=== PATIENT | male | born 1965 | race Two or more races ===

== ENCOUNTER → 2019-12-28 | Outpatient (CLI) | payer OTHER ==
--- NOTE | 2019-12-28 13:45 | XR ---
EXAMINATION TYPE: XR wrist complete RT DATE OF EXAM: 12/28/2019 COMPARISON: NONE HISTORY: 54-year-old male right wrist pain and swelling TECHNIQUE: 4 views FINDINGS: Mild degenerative change at the base of the thumb. Chronic ununited fracture fragment of th e ulnar styloid process. Generalized soft tissue swelling at the wrist. There is slight widening of t he scapholunate interval measuring up to 2.6 cm on the navicular view. Otherwise, no acute fracture, subluxation, or dislocation is seen. Old healed boxer's fracture deformity distal fifth metacarpal sh aft. IMPRESSION: 1. Generalized soft tissue swelling. 2. Mild widening of the scapholunate interval suggests age indeterminate scapholunate ligament injury /tear. 3. Chronic ununited fracture fragment of the ulnar styloid process. Old healed boxer's fracture defor mity of the fifth metacarpal.
== END | disposition home or self-care (01) ==
LOC: RADXRMAIN 13:18
PROVIDERS: ATTEND Family Medicine
DX: M79.89 Other specified soft tissue disorders (principal); M25.831 Other specified joint disorders, right wrist

== ENCOUNTER → 2022-04-24 | Outpatient (CLI) | payer OTHER ==
--- NOTE | 2022-04-24 10:23 | XR ---
EXAMINATION TYPE: XR chest 2V DATE OF EXAM: 04/24/2022 COMPARISON: NONE HISTORY: Shortness of breath TECHNIQUE: Frontal and lateral views of the chest are obtained. FINDINGS: Scattered senescent parenchymal changes noted. Hyperinflation compatible with COPD. No evidence for infiltrate. No evidence for atelectasis. There is pulmonary venous congestion with cardiomegaly and small right-sided pleural effusion. Probab le right basilar atelectasis. Mediastinal structures are stable and grossly unremarkable. No evidence for hilar prominence. Degenerative changes dorsal spine. IMPRESSION: 1. Correlate for mild congestive failure. Infiltrates of other etiology not excluded.
== END | disposition home or self-care (01) ==
LOC: RADXRMAIN 09:02
PROVIDERS: ATTEND Family Medicine
DX: Z00.00 Encounter for general adult medical examination without abnormal findings (principal)
CPT/HCPCS: 71046

== ENCOUNTER → 2022-05-22 | Outpatient (CLI) | payer OTHER ==
--- NOTE | 2022-05-22 14:53 | NM ---
EXAMINATION TYPE: NM bone scan whole body DATE OF EXAM: 05/22/2022 COMPARISON: NONE HISTORY: M79.10 MYALGIA, UNSPECIFIED SITE Delayed whole-body scanning was performed following the injection of 21.3 mCi Tc 99m MDP. Images acq uired 3 hours post injection. FINDINGS: There is a mild degenerative uptake seen about the shoulders, sternoclavicular joints, lower lumbar s pine, right knee. No intense uptake is seen to suggest fracture or osseous lesion. IMPRESSION: Mild degenerative uptake noted.
== END | disposition home or self-care (01) ==
LOC: RADNMMAIN 10:10
PROVIDERS: ATTEND Family Medicine
DX: M79.10 Myalgia, unspecified site (principal)
CPT/HCPCS: 78306; A9503

== ENCOUNTER 2023-01-23 08:04 | Inpatient (IN) | payer OTHER ==
[2023-01-23] MEDS ORDERED: IPRATROPIUM-ALBUTEROL 3 ML NEB INHALATION STA (08:21)
--- NOTE | 2023-01-23 08:24 | ED ---
General Adult HPI - General Chief complaint: Shortness of Breath Stated complaint: Dyspnea Time Seen by Provider: 01/23/23 08:14 Source: patient, family, RN notes reviewed Mode of arrival: wheelchair Limitations: physical limitation - History of Present Illness Initial comments: Patient is a pleasant 58-year-old male presenting to the emergency department with difficulty in breathing. Patient has known stage IV lung cancer, recently completed a round of treatment within the past week. Patient previously has had care at [facility] however is trying to transfer more locally. Patient was in the hospital with pneumonia last week. Patient mostly has dyspnea. Patient does have some leg swelling however has been relatively inactive recently. Erin ent does have some diffuse leg pain. No chest pain. No fevers. Mild cough. Patient is on home oxygen 4 L - Related Data Allergies Allergy/AdvReac Type Severity Reaction Status Date / Time No Known Allergies Allergy Verified 01/23/23 08:13 Review of Systems ROS Statement: Those systems with pertinent positive or pertinent negative responses have been documented in the HPI. ROS Other: All systems not noted in ROS Statement are negative. Constitutional: Denies: fever Eyes: Denies: eye pain ENT: Denies: ear pain Respiratory: Reports: as per HPI, dyspnea Cardiovascular: Reports: edema. Denies: chest pain Endocrine: Reports: fatigue Gastrointestinal: Denies: abdominal pain Genitourinary: Denies: dysuria Musculoskeletal: Denies: back pain Skin: Denies: rash Neurological: Denies: weakness Past Medical History Past Medical History: Cancer, Myocardial Infarction ([place]) Additional Past Medical History / Comment(s): lung cancer stage 4, home 02 at 4l History of Any Multi-Drug Resistant Organisms: None Reported Past Surgical History: Pacemaker Past Psychological History: No Psychological Hx Reported Smoking Status: Former smoker Past Alcohol Use History: None Reported Past Drug Use History: None Reported General Exam Limitations: no limitations General appearance: alert Head exam: Present: normocephalic Eye exam: Present: normal appearance Respiratory exam: Present: respiratory distress, decreased breath sounds Cardiovascular Exam: Present: regular rate, normal rhythm GI/Abdominal exam: Present: soft. Absent: tenderness Extremities exam: Present: pedal edema, calf tenderness Neurological exam: Present: alert Psychiatric exam: Present: normal affect, normal mood Skin exam: Present: normal color Course Vital Signs 01/23/23 01/23/23 01/23/23 08:08 08:28 08:37 Temperature 98.6 F Pulse Rate 100 107 H 107 H Respiratory 28 H 20 18 Rate Blood Pressure 105/50 O2 Sat by Pulse 90 L Oximetry 01/23/23 01/23/23 01/23/23 09:06 09:26 10:00 Temperature Pulse Rate 100 99 Respiratory 22 18 18 Rate Blood Pressure 123/90 119/81 O2 Sat by Pulse 92 L 90 L Oximetry EKG Findings - EKG Results: EKG: interpreted by ERMD (Paced rhythm with a rate of 100. [place] indeterminate. Wide QRS complex. Nonspecific ST-T) Medical Decision Making - Medical Decision Making Was pt. sent in by a medical professional or institution (, PA, TAIL END RIDER, urgent care, hospital, or skilled nursing...) When possible be specific @ -No Did you speak to anyone other than the patient for history (EMS, parent, family, police, friend...)? What history was obtained from this source @ -Son is present and helps provide history including oncology history and previous admission Did you review nursing and triage notes (agree or disagree)? Why? @ -I reviewed and agree with nursing and triage notes Were old charts reviewed (outside hosp., previous admission, EMS record, old EKG, old radiological studies, urgent care reports/EKG's, skilled nursing records)? Report findings @ -No old charts were reviewed Differential Diagnosis (chest pain, altered mental status, abdominal pain women, abdominal pain men, vaginal bleeding, weakness, fever, dyspnea, syncope, headache, dizziness, GI bleed, back pain, seizure, CVA, palpatations, mental health)? @ -Differential Dyspnea: Coronary syndrome, arrhythmia, tamponade, asthma, COPD, pulmonary embolism, pneumonia, pneumothorax, pulmonary effusion, anaphylaxis, diabetic ketoacidosis, flailed chest, pulmonary contusion, diaphragmatic rupture, anemia, neuromuscular, this is not meant to be an all-inclusive list. EKG interpreted by me (3pts min.). @ -As above X-rays interpreted by me (1pt min.). @ -Chest x-ray does show evidence of lung edema. Cardiomegaly. Effusions are present. Small. CT interpreted by me (1pt min.). @ -None done U/S interpreted by me (1pt. min.). @ -None done What testing was considered but not performed or refused? (CT, X-rays, U/S, labs)? Why? @ -None What meds were considered but not given or refused? Why? @ -None Did you discuss the management of the patient with other professionals ( professionals i.e. , PA, TAIL END RIDER, lab, RT, psych nurse, social insurance analyst, investigation officer, teacher, horticultural technical officer, catalytic case operator)? Give summary @ -Case was discussed with Dr. Cleary, who will admit covering Dr. Valles Was smoking cessation discussed for >3mins.? @ -No Was critical care preformed (if so, how long)? @ -32 minutes critical care time Were there social determinants of health that impacted care today? How? (Homelessness, low income, unemployed, alcoholism, drug addiction, transport ation, low edu. Level, literacy, decrease access to med. care, correction, rehab)? @ -No Was there de-escalation of care discussed even if they declined (Discuss DNR or withdrawal of care, Hospice)? DNR status @ -No What co-morbidities impacted this encounter? (DM, HTN, Smoking, COPD, CAD, Cancer, CVA, ARF, Chemo, Hep., AIDS, mental health diagnosis, sleep apnea, morbid obesity)? @ -Patient does have history of recent pneumonia and lung cancer Was patient admitted / discharged? Hospital course, mention meds given and route, prescriptions, significant lab abnormalities, going to OR and other pertinent info. @ -Patient reevaluated and somewhat improved. Patient and family are updated regarding results and plan. Patient will be admitted for diuresis. Patient cassie l also need consults with cardiology and oncology Undiagnosed new problem with uncertain prognosis? @ -No Drug Therapy requiring intensive monitoring for toxicity (Heparin, Nitro, Insulin, Cardizem)? @ -Patient will receive a dose of IV potassium Were any procedures done? @ -No Diagnosis/symptom? @ -Pulmonary edema, hypokalemia, lung cancer Acute, or Chronic, or Acute on Chronic? @ -Acute, acute, chronic Uncomplicated (without systemic symptoms) or Complicated (systemic symptoms)? @ -default Side effects of treatment? @ -No Exacerbation, Progression, or Severe Exacerbation? @ -No Poses a threat to life or bodily function? How? (Chest pain, [place], [place], pneumonia, PE, COPD, DKA, ARF, appy, cholecystitis, CVA, Diverticulitis, Homicidal, Suicidal, threat to staff... and all critical care pts) @ -No - Lab Data Result diagrams: 01/23/23 09:22 01/23/23 09:22 Lab Results 01/23/23 01/23/23 01/23/23 Range/Units 09:22 09:22 09:22 WBC 12.6 H (3.8-10.6) k/uL RBC 3.58 L (4.30-5.90) m/uL Hgb 10.5 L (13.0-17.5) gm/dL Hct 35.1 L (39.0-53.0) % MCV 98.0 (80.0-100.0) fL MCH 29.2 (25.0-35.0) pg MCHC 29.8 L (31.0-37.0) g/dL RDW 20.3 H (11.5-15.5) % Plt Count 152 (150-450) k/uL MPV 9.2 Neutrophils % 93 % Lymphocytes % 2 % Monocytes % 3 % Eosinophils % 0 % Basophils % 0 % Neutrophils # 11.7 H (1.3-7.7) k/uL Lymphocytes # 0.3 L (1.0-4.8) k/uL Monocytes # 0.4 (0-1.0) k/uL Eosinophils # 0.0 (0-0.7) k/uL Basophils # 0.0 (0-0.2) k/uL Hypochromasia Marked Poikilocytosis Slight Anisocytosis Moderate Macrocytosis Moderate PT 12.6 H (9.0-12.0) sec INR 1.2 H (<1.2) APTT 25.4 (22.0-30.0) sec Sodium 136 L (137-145) mmol/L Potassium 2.8 L (3.5-5.1) mmol/L Chloride 89 L (98-107) mmol/L Carbon Dioxide 36 H (22-30) mmol/L Anion Gap 11 mmol/L BUN 31 H (9-20) mg/dL Creatinine 0.75 (0.66-1.25) mg/dL Est GFR (CKD-EPI)AfAm >90 (>60 ml/min/1.73 sqM) Est GFR (CKD-EPI)NonAf >90 (>60 ml/min/1.73 sqM) Glucose 97 (74-99) mg/dL Plasma Lactic Acid Buck (0.7-2.0) mmol/L Calcium 8.2 L (8.4-10.2) mg/dL Magnesium 1.8 (1.6-2.3) mg/dL Total Bilirubin 1.7 H (0.2-1.3) mg/dL AST 46 (17-59) U/L ALT 53 H (4-49) U/L Alkaline Phosphatase 508 H (38-126) U/L Troponin I (0.000-0.034) ng/mL NT-Pro-B Natriuret Pep pg/mL Total Protein 6.1 L (6.3-8.2) g/dL Albumin 3.3 L (3.5-5.0) g/dL Coronavirus (PCR) (Not Detectd) 01/23/23 01/23/23 01/23/23 Range/Units 09:22 09:22 09:22 WBC (3.8-10.6) k/uL RBC (4.30-5.90) m/uL Hgb (13.0-17.5) gm/dL Hct (39.0-53.0) % MCV (80.0-100.0) fL MCH (25.0-35.0) pg MCHC (31.0-37.0) g/dL RDW (11.5-15.5) % Plt Count (150-450) k/uL MPV Neutrophils % % Lymphocytes % % Monocytes % % Eosinophils % % Basophils % % Neutrophils # (1.3-7.7) k/uL Lymphocytes # (1.0-4.8) k/uL Monocytes # (0-1.0) k/uL Eosinophils # (0-0.7) k/uL Basophils # (0-0.2) k/uL Hypochromasia Poikilocytosis Anisocytosis Macrocytosis PT (9.0-12.0) sec INR (<1.2) APTT (22.0-30.0) sec Sodium (137-145) mmol/L Potassium (3.5-5.1) mmol/L Chloride (98-107) mmol/L Carbon Dioxide (22-30) mmol/L Anion Gap mmol/L BUN (9-20) mg/dL Creatinine (0.66-1.25) mg/dL Est GFR (CKD-EPI)AfAm (>60 ml/min/1.73 sqM) Est GFR (CKD-EPI)NonAf (>60 ml/min/1.73 sqM) Glucose (74-99) mg/dL Plasma Lactic Acid Buck 1.6 (0.7-2.0) mmol/L Calcium (8.4-10.2) mg/dL Magnesium (1.6-2.3) mg/dL Total Bilirubin (0.2-1.3) mg/dL AST (17-59) U/L ALT (4-49) U/L Alkaline Phosphatase (38-126) U/L Troponin I 0.053 H* (0.000-0.034) ng/mL NT-Pro-B Natriuret Pep 41299 pg/mL Total Protein (6.3-8.2) g/dL Albumin (3.5-5.0) g/dL Coronavirus (PCR) (Not Detectd) 01/23/23 Range/Units 09:22 WBC (3.8-10.6) k/uL RBC (4.30-5.90) m/uL Hgb (13.0-17.5) gm/dL Hct (39.0-53.0) % MCV (80.0-100.0) fL MCH (25.0-35.0) pg MCHC (31.0-37.0) g/dL RDW (11.5-15.5) % Plt Count (150-450) k/uL MPV Neutrophils % % Lymphocytes % % Monocytes % % Eosinophils % % Basophils % % Neutrophils # (1.3-7.7) k/uL Lymphocytes # (1.0-4.8) k/uL Monocytes # (0-1.0) k/uL Eosinophils # (0-0.7) k/uL Basophils # (0-0.2) k/uL Hypochromasia Poikilocytosis Anisocytosis Macrocytosis PT (9.0-12.0) sec INR (<1.2) APTT (22.0-30.0) sec Sodium (137-145) mmol/L Potassium (3.5-5.1) mmol/L Chloride (98-107) mmol/L Carbon Dioxide (22-30) mmol/L Anion Gap mmol/L BUN (9-20) mg/dL Creatinine (0.66-1.25) mg/dL Est GFR (CKD-EPI)AfAm (>60 ml/min/1.73 sqM) Est GFR (CKD-EPI)NonAf (>60 ml/min/1.73 sqM) Glucose (74-99) mg/dL Plasma Lactic Acid Buck (0.7-2.0) mmol/L Calcium (8.4-10.2) mg/dL Magnesium (1.6-2.3) mg/dL Total Bilirubin (0.2-1.3) mg/dL AST (17-59) U/L ALT (4-49) U/L Alkaline Phosphatase (38-126) U/L Troponin I (0.000-0.034) ng/mL NT-Pro-B Natriuret Pep pg/mL Total Protein (6.3-8.2) g/dL Albumin (3.5-5.0) g/dL Coronavirus (PCR) Not Detected (Not Detectd) Critical Care Time Critical Care Time: Yes Total Critical Care Time: 32 Disposition Clinical Impression: Acute pulmonary edema, Lung cancer, Hypokalemia Disposition: ADMITTED IP TO THIS [facility] Condition: Serious Is patient prescribed a controlled substance at d/c from ED?: No Referrals: Samson Stark DO [Primary Care Provider] - 1-2 days Time of Disposition: 10:43
[2023-01-23] MEDS ORDERED: MORPHINE SULFATE 4 MG/ML SYRINGE IVP STA (08:51)
--- NOTE | 2023-01-23 09:32 | XR ---
EXAMINATION TYPE: XR chest 1V portable DATE OF EXAM: 01/23/2023 COMPARISON: 04/24/2022 INDICATION: Dyspnea TECHNIQUE: Single frontal view of the chest is obtained. FINDINGS: The heart size is enlarged. The pulmonary vasculature is normal. Diffuse increased lung markings are present bilaterally. Minimal bilateral pleural effusions are pres ent. Port is present on the right with the tip in the superior vena cava region. Electronic device overlie s left chest. IMPRESSION: 1. Cardiomegaly with bibasilar infiltrates. Small effusions are present. Clinical correlation recomme nded for congestive heart failure.
[2023-01-23 09:37] LABS: Anisocytosis Moderate; Basophils % (A) 0 %; Eosinophils % (A) 0 %; HCT 35.1 % (39.0-53.0); HGB 10.5 gm/dL (13.0-17.5); Hypochromasia Marked; Lymphocytes # (A) 0.3 k/uL (1.0-4.8); Lymphocytes % (A) 2 %; MCH 29.2 pg (25.0-35.0); MCHC 29.8 g/dL (31.0-37.0); Macrocytosis Moderate; Mean Platelet Volume 9.2; Monocytes # (A) 0.4 k/uL (0-1.0); Monocytes % (A) 3 %; Neutrophils # (A) 11.7 k/uL (1.3-7.7); Neutrophils % (A) 93 %; Platelet Count 152 k/uL (150-450); Poikilocytosis Slight; RBC 3.58 m/uL (4.30-5.90); RDW 20.3 % (11.5-15.5); WBC 12.6 k/uL (3.8-10.6)
[2023-01-23 09:52] LABS: INR 1.2 (<1.2); Partial Thromboplastin Time 25.4 sec (22.0-30.0); Prothrombin Time 12.6 sec (9.0-12.0)
[2023-01-23 09:53] LABS: ALT 53 U/L (4-49); AST 46 U/L (17-59); African American GFR (CKD) >90 (>60 ml/min/1.73 sqM); Albumin 3.3 g/dL (3.5-5.0); Alkaline Phosphatase 508 U/L (38-126); Blood Urea Nitrogen 31 mg/dL (9-20); Calcium 8.2 mg/dL (8.4-10.2); Chloride 89 mmol/L (98-107); Glucose 97 mg/dL (74-99); Magnesium 1.8 mg/dL (1.6-2.3); Non-African American GFR(CKD) >90 (>60 ml/min/1.73 sqM); Potassium 2.8 mmol/L (3.5-5.1); Sodium 136 mmol/L (137-145); Total Bilirubin 1.7 mg/dL (0.2-1.3); Total Protein 6.1 g/dL (6.3-8.2)
[2023-01-23 09:59] LABS: Anion Gap 11 mmol/L; Carbon Dioxide 36 mmol/L (22-30)
[2023-01-23] MEDS ORDERED: POTASSIUM CHLORIDE ER 20 MEQ TAB.ER PO STA (10:04)
[2023-01-23] MEDS ORDERED: POTASSIUM CHLORIDE 10 MEQ in WATER FOR INJECTION 1 100ML.BAG IVPB STA (10:42)
--- NOTE | 2023-01-23 10:54 | US ---
EXAMINATION TYPE: US venous doppler duplex LE BI DATE OF EXAM: 01/23/2023 10:32 AM COMPARISON: NONE CLINICAL INDICATION: Male, 58 years old with history of swelling; Edema SIDE PERFORMED: Bilateral TECHNIQUE: The lower extremity deep venous system is examined utilizing real time linear array sonog gen with graded compression, doppler sonography and color-flow sonography. VESSELS IMAGED: Common Femoral Vein Deep Femoral Vein Greater Saphenous Vein * Femoral Vein Popliteal Vein Small Saphenous Vein * Proximal Calf Veins (* superficial vessels) Right Leg: No evidence of DVT as visualized. Limitations due to large amount of soft tissue edema Left Leg: No evidence of DVT as visualized. Limitations due to large amount of soft tissue edema IMPRESSION: 1. Bilateral lower extremity ultrasound negative for deep venous thrombosis.
[2023-01-23] MEDS: FUROSEMIDE 10 MG/ML 4 ML VIAL IV SCH ×2 (11:27→18:27)
[2023-01-23] MEDS: SPIRONOLACTONE 25 MG TAB PO SCH (13:26)
[2023-01-23] MEDS: METOPROLOL TARTRATE 12.5 MG TAB PO SCH ×3 (13:26→21:13)
--- NOTE | 2023-01-23 14:54 | P.CRDCN ---
History of Present Illness Consult date: 01/23/23 Consult reason: shortness of breath History of present illness: The patient is a 58-year-old male who presented to the hospital with increased shortness of breath and lower extremity edema. He states he's been struggling with edema over the last several months while undergoing chemotherapy for stage IV lung cancer and was recently treated for pneumonia. He states several of his chemotherapy treatments have had to be canceled due to the edema. The patient states he does follow with a Dr. Pacheco at [facility]. DIAGNOSTICS: EKG shows paced rhythm Telemetry shows paced rhythm with alternating bundle branch block, likely underlying atrial fibrillation Chest x-ray shows cardiomegaly with bibasilar infiltrates and small effusions Venous Doppler negative for DVT Vitals: Blood pressure 104/90, pulse 101, respiratory rate 22, SpO2 94% on 4 L nasal cannula, afebrile Lab data: WBC 12.6, hemoglobin 10.5, hematocrit 35.1, platelet 152, sodium 136, potassium 2.8, BUN 31, creatinine 0.75, magnesium 1.8, AST 46, ALT 53, ALP 508, troponin 0.05, 0.05, 0.05, BNP 13,100 PAST MEDICAL HISTORY: Cardiomyopathy, status post biventricular ICD, stage IV lung cancer, coronary artery disease REVIEW OF SYSTEMS: No fever or chills. No cough or expectoration. No diaphoresis. Patient denies headache, dizziness, blurred vision, double vision. Patient denies any stomach discomfort. No nausea, vomiting. No hematochezia. No hematemesis. Denies any black stools or blood in his stools. Denies dysuria or hematuria. No muscle weakness or numbness. Positive for shortness of breath. Negative for chest discomfort PHYSICAL EXAMINATION: This is a 58-year-old male in no apparent distress at the time of my examination. HEENT: Head is atraumatic, normocephalic. Pupils are equal, round. Sclerae anicteric. Conjunctivae are clear. Mucous membranes of the mouth are moist. Neck is supple. There is no jugular venous distention. No carotid bruit is heard. CHEST EXAMINATION: Lungs are clear diminished auscultation. No chest wall tenderness is noted on palpation or with deep breathing. HEART EXAMINATION: Irregular rate and rhythm. S1, S2 heard. No murmurs, gallops or rub. ABDOMEN: Soft, nontender. Bowel sounds are heard. No organomegaly noted. EXTREMITIES: 2+ peripheral pulses. +2-3 bilateral pitting peripheral edema and no calf tenderness noted. NEUROLOGIC EXAMINATION: Patient is awake, alert and oriented x3. FINAL ASSESSMENT AND PLAN: Congestive heart failure, likely systolic Elevated troponins, flat trend Hypokalemia Anemia History of stage IV lung cancer, currently undergoing chemotherapy PLAN: Confirm and resume home medications Start metoprolol 12-1/2 mg 3 times per day Start spironolactone 25 mg Device interrogation Strict I's and O's Electrolyte supplementation per protocol Echocardiogram and Doppler study Further recommendations to be based upon clinical course I am dictating on behalf of Dr Tej Fitzpatrick's history/physical and assessment/plan. Past Medical History Past Medical History: Cancer, Myocardial Infarction ([place]) Additional Past Medical History / Comment(s): lung cancer stage 4, home 02 at 4l History of Any Multi-Drug Resistant Organisms: None Reported Past Surgical History: Pacemaker Past Psychological History: No Psychological Hx Reported Smoking Status: Former smoker Past Alcohol Use History: None Reported Past Drug Use History: None Reported Medications and Allergies Home Medications Medication Instructions Recorded Confirmed Type ALPRAZolam [Xanax] 1 mg PO BID PRN 01/23/23 01/23/23 History Albuterol Inhaler [Ventolin Hfa 1 - 2 puff INHALATION RT-Q6H PRN 01/23/23 01/23/23 History Inhaler] Aspirin EC [Ecotrin Low Dose] 81 mg PO DAILY 01/23/23 01/23/23 History Atorvastatin Calcium [Lipitor] 40 mg PO HS 01/23/23 01/23/23 History Ferrous Sulfate [Feosol] 325 mg PO DAILY 01/23/23 01/23/23 History Folic Acid 1 mg PO DAILY 01/23/23 01/23/23 History Furosemide [Lasix] 40 mg PO DAILY 01/23/23 01/23/23 History Ibuprofen [Motrin] 800 mg PO Q8H PRN 01/23/23 01/23/23 History Levothyroxine Sodium 200 mcg PO DAILY 01/23/23 01/23/23 History Lidocaine-Prilocaine Cream [Emla 1 applic TOPICAL DAILY PRN 01/23/23 01/23/23 History Cream 2.5%/2.5%] Magnesium Oxide [Mag-Ox] 400 mg PO DAILY 01/23/23 01/23/23 History Melatonin 10 mg PO HS 01/23/23 01/23/23 History Metoprolol Succinate [Metoprolol 25 mg PO DAILY 01/23/23 01/23/23 History Succinate ER] OLANZapine [ZyPREXA] 5 mg PO HS PRN 01/23/23 01/23/23 History Omeprazole 20 mg PO DAILY 01/23/23 01/23/23 History Ondansetron Odt [Zofran Odt] 8 mg PO Q8HR PRN 01/23/23 01/23/23 History Potassium Chloride ER [K-Dur 20] 20 meq PO DAILY 01/23/23 01/23/23 History Tiotropium 2.5 Mcg/Puff [Spiriva 1 puff INHALATION RT-BID 01/23/23 01/23/23 History Respimat 2.5 Mcg] Allergies Allergy/AdvReac Type Severity Reaction Status Date / Time No Known Allergies Allergy Verified 01/23/23 13:04 Physical Exam Vitals: Vital Signs Temp Pulse Resp BP Pulse Ox 01/23/23 14:01 101 H 22 104/90 94 L 01/23/23 13:00 93 L 01/23/23 12:59 97.6 F 100 22 111/91 88 L 01/23/23 10:00 99 18 119/81 90 L 01/23/23 09:26 100 18 123/90 92 L 01/23/23 09:06 22 01/23/23 08:37 107 H 18 01/23/23 08:28 107 H 20 01/23/23 08:08 98.6 F 100 28 H 105/50 90 L Intake and Output 01/22/23 01/23/23 01/23/23 22:59 06:59 14:59 Other: Weight 77.564 kg Results 01/23/23 09:22 01/23/23 09:22 Cardiac Enzymes 01/23/23 01/23/23 01/23/23 Range/Units 09:22 09:22 11:10 AST 46 (17-59) U/L Troponin I 0.053 H* 0.055 H* (0.000-0.034) ng/mL 01/23/23 Range/Units 13:07 AST (17-59) U/L Troponin I 0.059 H* (0.000-0.034) ng/mL Coagulation 01/23/23 Range/Units 09:22 PT 12.6 H (9.0-12.0) sec APTT 25.4 (22.0-30.0) sec CBC 01/23/23 Range/Units 09:22 WBC 12.6 H (3.8-10.6) k/uL RBC 3.58 L (4.30-5.90) m/uL Hgb 10.5 L (13.0-17.5) gm/dL Hct 35.1 L (39.0-53.0) % Plt Count 152 (150-450) k/uL Comprehensive Metabolic Panel 01/23/23 Range/Units 09:22 Sodium 136 L (137-145) mmol/L Potassium 2.8 L (3.5-5.1) mmol/L Chloride 89 L (98-107) mmol/L Carbon Dioxide 36 H (22-30) mmol/L BUN 31 H (9-20) mg/dL Creatinine 0.75 (0.66-1.25) mg/dL Glucose 97 (74-99) mg/dL Calcium 8.2 L (8.4-10.2) mg/dL AST 46 (17-59) U/L ALT 53 H (4-49) U/L Alkaline Phosphatase 508 H (38-126) U/L Total Protein 6.1 L (6.3-8.2) g/dL Albumin 3.3 L (3.5-5.0) g/dL Current Medications Generic Name Dose Route Start Last Admin Trade Name Freq PRN Reason Stop Dose Admin Furosemide 40 mg 01/23/23 11:00 01/23/23 11:27 Furosemide 10 Mg/Ml 4 Ml Vial IV 40 mg Q8H BRITTNEE Administration Metoprolol Tartrate 12.5 mg 01/23/23 13:00 01/23/23 13:26 Metoprolol Tartrate 12.5 Mg Tab PO 12.5 mg TID BRITTNEE Administration Spironolactone 25 mg 01/23/23 13:00 01/23/23 13:26 Spironolactone 25 Mg Tab PO 25 mg DAILY BRITTNEE Administration Intake and Output 01/22/23 01/23/23 01/23/23 22:59 06:59 14:59 Other: Weight 77.564 kg Patient Weight 01/24/23 06:59 Weight 77.564 kg 01/23/23 09:22 01/23/23 09:22
--- NOTE | 2023-01-23 17:55 | CA ---
Transthoracic Echo Report Name: Charli Rod Age: 58 Gender: M : 1965 Exam Date: 01/23/2023 13:10 Exam Location: [facility] Ht (in): 68 Wt (lb): 171 Ordering Physician: Cordelia Leon Attending/Referring Phys: [id number], Edward [employer]ights Specialist Yina Mckeon, RANDELL Procedure CPT: Indications: chf, cardiomyopathy Cardiac Hx: Technical Quality: Fair Contrast 1: Total Dose (mL): Contrast 2: Total Dose (mL): MEASUREMENTS (Male / Female) Normal Values 2D ECHO LV Diastolic Diameter PLAX 5.3 cm 4.2 - 5.9 / 3.9 - 5.3 cm LV Systolic Diameter PLAX 4.8 cm IVS Diastolic Thickness 1.7 cm 0.6 - 1.0 / 0.6 - 0.9 cm LVPW Diastolic Thickness 1.2 cm 0.6 - 1.0 / 0.6 - 0.9 cm LV Relative Wall Thickness 0.5 RV Internal Dim ED PLAX 3.6 cm LA Volume 83.8 cm??? 18 - 58 / 22 - 52 cm??? M-MODE Aortic Root Diameter MM 3.0 cm LA Systolic Diameter MM 4.3 cm LA Ao Ratio MM 1.5 AV Cusp Separation MM 1.6 cm DOPPLER AV Peak Velocity 189.6 cm/s AV Peak Gradient 14.4 mmHg AV Mean Velocity 131.2 cm/s AV Mean Gradient 8.3 mmHg AV Velocity Time Integral 23.5 cm LVOT Peak Velocity 147.2 cm/s LVOT Peak Gradient 8.7 mmHg MV Peak Velocity 197.5 cm/s MV Peak Gradient 15.6 mmHg MV Mean Velocity 115.1 cm/s MV Mean Gradient 6.4 mmHg MV Velocity Time Integral 30.2 cm MV Area PHT 3.0 cm??? Mitral E Point Velocity 217.5 cm/s Mitral A Point Velocity 1.7 cm/s Mitral E to A Ratio 125.0 MV Deceleration Time 253.2 ms TR Peak Velocity 392.5 cm/s TR Peak Gradient 61.6 mmHg Right Ventricular Systolic Press 63.5 mmHg FINDINGS Left Ventricle Moderately increased left ventricular wall thickness. Severely reduced global left ventricular systolic function. Left ventricular ejection fraction is estimated at 20 %. S/P CABG. Right Ventricle Mild right ventricular dilatation. Severe pulmonary hypertension. Right Atrium Mild right atrial dilatation. Left Atrium Severely increased left atrial volume. Mildly increased left atrial area. Mitral Valve Moderate mitral annular calcification. S/P Mitral valve repair. Aortic Valve No aortic valve stenosis or regurgitation. Aortic valve sclerosis. Tricuspid Valve Structurally normal tricuspid valve. [id number] tricuspid regurgitation. Pulmonic Valve Structurally normal pulmonic valve. Trace to mild pulmonic regurgitation. Pericardium No pericardial effusion. Aorta Normal size aortic root and proximal ascending aorta. CONCLUSIONS Dilated left ventricle with severe LV dysfunction Physical mitral leaflets with reduced excursion 3+ tricuspid regurgitation RV enlargement with severe pulmonary hypertension Previewed by: Dr. Tej Fitzpatrick MD (Electronically Signed) Final Date: 23 Jan 2023 17:54
[2023-01-24] MEDS: MORPHINE SULFATE 4 MG/ML SYRINGE IVP PRN ×3 (02:38→20:38)
[2023-01-24] MEDS: FUROSEMIDE 10 MG/ML 4 ML VIAL IV SCH ×3 (04:41→21:50)
[2023-01-24 05:55] LABS: African American GFR (CKD) >90 (>60 ml/min/1.73 sqM); Anion Gap 12 mmol/L; Blood Urea Nitrogen 35 mg/dL (9-20); Calcium 8.3 mg/dL (8.4-10.2); Carbon Dioxide 35 mmol/L (22-30); Chloride 87 mmol/L (98-107); Glucose 95 mg/dL (74-99); Non-African American GFR(CKD) 90 (>60 ml/min/1.73 sqM); Potassium 3.6 mmol/L (3.5-5.1); Sodium 134 mmol/L (137-145)
[2023-01-24] MEDS ORDERED: ONDANSETRON ODT 8 MG TAB.RAPDIS PO PRN (08:30)
[2023-01-24] MEDS ORDERED: OLANZapine 5 MG TAB PO PRN (08:30)
[2023-01-24] MEDS ORDERED: ACETAMINOPHEN TAB 325 MG TAB PO PRN (08:31)
[2023-01-24] MEDS: SPIRONOLACTONE 25 MG TAB PO SCH (09:09)
[2023-01-24] MEDS: PANTOPRAZOLE 40 MG TABLET PO SCH (09:09)
[2023-01-24] MEDS: MAGNESIUM OXIDE 400 MG TAB PO SCH (09:09)
[2023-01-24] MEDS: ASPIRIN 81 MG PO SCH (09:09)
[2023-01-24] MEDS: POTASSIUM CHLORIDE ER 20 MEQ TAB.ER PO SCH (09:10)
[2023-01-24] MEDS: FERROUS SULFATE 325 MG TAB PO SCH (09:10)
[2023-01-24] MEDS: METOPROLOL TARTRATE 12.5 MG TAB PO SCH ×3 (09:10→20:37)
[2023-01-24] MEDS: FOLIC ACID 1 MG TAB PO SCH (09:10)
[2023-01-24] MEDS: LEVOTHYROXINE 100 MCG TAB PO SCH (09:12)
--- NOTE | 2023-01-24 13:15 | P.PN ---
Subjective Progress Note Date: 01/24/23 The patient is a 58-year-old male who presented to the hospital with increased shortness of breath and lower extremity edema. Cardiology was consulted for CHF exacerbation. Recent echocardiogram shows reduction in LV function to 20% with severe global hypokinesis, increased left atrial volume, 3+ tricuspid regurgitation, RV enlargement with severe pulmonary hypertension. RVSP 63 mmHg. Device interrogation also reveals new onset of atrial fibrillation in the month of December. This corresponds with his increase in edema and worsening shortness of breath. Optive readings indicate fluid overload. The patient was interviewed and examined resting comfortably in bed. He states his breathing has not improved, however he does feel that his lower extremity edema is improving. No chest pain or chest pressure. No dizziness. GENERAL: Ill-appearing, well-nourished and in no acute distress. NECK: Supple without JVD or thyromegaly. LUNGS: Breath sounds diminished to auscultation bilaterally. Respiration equal and unlabored. Fine crackles noted in the right lower lobe. HEART: Irregular rate and rhythm. Soft systolic murmur. No rubs or gallops. S1 and S2 heard. EXTREMITIES: Normal range of motion, +2 lower extremity pitting. No clubbing or cyanosis. Peripheral pulses intact and strong. VITALS: Blood pressure 114/68, pulse 98, afebrile, respiratory rate 16, SpO2 93% on 4 L nasal cannula TELEMETRY: Paced rhythm with ectopy LABS: Sodium 134, potassium 3.6, BUN 35, creatinine 0.93 IMPRESSION: Exacerbation of systolic heart failure, EF 25% Atrial fibrillation, persistent with recent onset Elevated troponins, flat trend Hypokalemia Anemia History of stage IV lung cancer, currently undergoing chemotherapy Pulmonary hypertension PLAN: Recommend starting anticoagulation with novel agent. Reduce furosemide to twice a day for slow diuresis to avoid hypotension Maximize cardiomyopathy medications as tolerated Further recommendations to be based on clinical course I am dictating on behalf of Dr Tej Fitzpatrick's history/physical and assessment/plan. Objective - Vital Signs Vital signs: Vital Signs Temp 97.5 F L 01/24/23 08:10 Pulse 98 01/24/23 08:10 Resp 16 01/24/23 08:10 BP 114/68 01/24/23 08:10 Pulse Ox 93 L 01/24/23 08:10 FiO2 Intake & Output 05/01/24/23 01/24/23 18:59 06:59 18:59 Intake Total 490 Output Total 1375 Balance -885 Weight 77.564 kg 77.564 kg Intake: IV 10 Invasive Line 1 10 Oral 480 Output: Urine 1375 - Labs CBC & Chem 7: 01/23/23 09:22 01/24/23 04:43 Labs: Abnormal Lab Results - Last 24 Hours (Table) 01/23/23 01/24/23 01/24/23 Range/Units 13:07 00:41 04:43 Sodium 134 L (137-145) mmol/L Potassium 3.3 L (3.5-5.1) mmol/L Chloride 87 L (98-107) mmol/L Carbon Dioxide 35 H (22-30) mmol/L BUN 35 H (9-20) mg/dL Calcium 8.3 L (8.4-10.2) mg/dL Troponin I 0.059 H* (0.000-0.034) ng/mL
--- NOTE | 2023-01-24 15:49 | P.HPIM ---
History of Present Illness H&P Date: 01/23/23 Chief Complaint: Shortness of breath 58-year-old male who presented to the hospital with increased shortness of breath and lower extremity edema. He states he's been struggling with edema over the last several months while undergoing chemotherapy for stage IV lung cancer and was recently treated for pneumonia. He states several of his chemotherapy treatments have had to be canceled due to the edema. The patient states he does follow with a Dr. Pacheco at [facility]. Workup treated in ED reveals EKG shows paced rhythm Telemetry shows paced rhythm with alternating bundle branch block, likely underlying atrial fibrillation Chest x-ray shows cardiomegaly with bibasilar infiltrates and small effusions Venous Doppler negative for DVT Lab data: WBC 12.6, hemoglobin 10.5, hematocrit 35.1, platelet 152, sodium 136, potassium 2.8, BUN 31, creatinine 0.75, magnesium 1.8, AST 46, ALT 53, ALP 508, troponin 0.05, 0.05, 0.05, BNP 13,100 Review of Systems Insulin doses to Past Medical History Past Medical History: Cancer, Myocardial Infarction ([place]) Additional Past Medical History / Comment(s): lung cancer stage 4, home 02 at 4l History of Any Multi-Drug Resistant Organisms: None Reported Past Surgical History: Pacemaker Past Psychological History: No Psychological Hx Reported Smoking Status: Former smoker Past Alcohol Use History: None Reported Past Drug Use History: None Reported - Past Family History Father Family Medical History: Unable to Obtain Mother Family Medical History: Myocardial Infarction ([place]) Medications and Allergies Home Medications Medication Instructions Recorded Confirmed Type ALPRAZolam [Xanax] 1 mg PO BID PRN 01/23/23 01/23/23 History Albuterol Inhaler [Ventolin Hfa 1 - 2 puff INHALATION RT-Q6H PRN 01/23/23 01/23/23 History Inhaler] Aspirin EC [Ecotrin Low Dose] 81 mg PO DAILY 01/23/23 01/23/23 History Atorvastatin Calcium [Lipitor] 40 mg PO HS 01/23/23 01/23/23 History Ferrous Sulfate [Feosol] 325 mg PO DAILY 01/23/23 01/23/23 History Folic Acid 1 mg PO DAILY 01/23/23 01/23/23 History Furosemide [Lasix] 40 mg PO DAILY 01/23/23 01/23/23 History Ibuprofen [Motrin] 800 mg PO Q8H PRN 01/23/23 01/23/23 History Levothyroxine Sodium 200 mcg PO DAILY 01/23/23 01/23/23 History Lidocaine-Prilocaine Cream [Emla 1 applic TOPICAL DAILY PRN 01/23/23 01/23/23 History Cream 2.5%/2.5%] Magnesium Oxide [Mag-Ox] 400 mg PO DAILY 01/23/23 01/23/23 History Melatonin 10 mg PO HS 01/23/23 01/23/23 History Metoprolol Succinate [Metoprolol 25 mg PO DAILY 01/23/23 01/23/23 History Succinate ER] OLANZapine [ZyPREXA] 5 mg PO HS PRN 01/23/23 01/23/23 History Omeprazole 20 mg PO DAILY 01/23/23 01/23/23 History Ondansetron Odt [Zofran Odt] 8 mg PO Q8HR PRN 01/23/23 01/23/23 History Potassium Chloride ER [K-Dur 20] 20 meq PO DAILY 01/23/23 01/23/23 History Tiotropium 2.5 Mcg/Puff [Spiriva 1 puff INHALATION RT-BID 01/23/23 01/23/23 History Respimat 2.5 Mcg] Allergies Allergy/AdvReac Type Severity Reaction Status Date / Time No Known Allergies Allergy Verified 01/23/23 13:04 Physical Exam Vitals: Vital Signs Temp Pulse Resp BP Pulse Ox 01/23/23 16:18 99 20 103/85 94 L 01/23/23 15:02 100 20 101/91 95 01/23/23 14:01 101 H 22 104/90 94 L 01/23/23 13:00 93 L 01/23/23 12:59 97.6 F 100 22 111/91 88 L 01/23/23 10:00 99 18 119/81 90 L 01/23/23 09:26 100 18 123/90 92 L 01/23/23 09:06 22 01/23/23 08:37 107 H 18 01/23/23 08:28 107 H 20 01/23/23 08:08 98.6 F 100 28 H 105/50 90 L Intake and Output 01/23/23 01/23/23 01/23/23 06:59 14:59 22:59 Other: Weight 77.564 kg PHYSICAL EXAMINATION: GENERAL: The patient is alert and oriented x3, not in any acute distress. Well developed, well nourished. HEENT: Pupils are round and equally reacting to light. EOMI. No scleral icterus. No conjunctival pallor. Normocephalic, atraumatic. No pharyngeal erythema. No thyromegaly. CARDIOVASCULAR: S1 and S2 present. No murmurs, rubs, or gallops. PULMONARY: Chest is clear to auscultation, no wheezing or crackles. ABDOMEN: Soft, nontender, nondistended, normoactive bowel sounds. No palpable organomegaly. MUSCULOSKELETAL: No joint swelling or deformity. EXTREMITIES: No cyanosis, clubbing, or pedal edema. NEUROLOGICAL: Gross neurological examination did not reveal any focal deficits. SKIN: No rashes. Results CBC & Chem 7: 01/23/23 09:22 01/24/23 04:43 Labs: Abnormal Lab Results - Last 24 Hours (Table) 01/23/23 01/23/23 01/23/23 Range/Units 09:22 09:22 09:22 WBC 12.6 H (3.8-10.6) k/uL RBC 3.58 L (4.30-5.90) m/uL Hgb 10.5 L (13.0-17.5) gm/dL Hct 35.1 L (39.0-53.0) % MCHC 29.8 L (31.0-37.0) g/dL RDW 20.3 H (11.5-15.5) % Neutrophils # 11.7 H (1.3-7.7) k/uL Lymphocytes # 0.3 L (1.0-4.8) k/uL PT 12.6 H (9.0-12.0) sec INR 1.2 H (<1.2) Sodium 136 L (137-145) mmol/L Potassium 2.8 L (3.5-5.1) mmol/L Chloride 89 L (98-107) mmol/L Carbon Dioxide 36 H (22-30) mmol/L BUN 31 H (9-20) mg/dL Calcium 8.2 L (8.4-10.2) mg/dL Total Bilirubin 1.7 H (0.2-1.3) mg/dL ALT 53 H (4-49) U/L Alkaline Phosphatase 508 H (38-126) U/L Troponin I (0.000-0.034) ng/mL Total Protein 6.1 L (6.3-8.2) g/dL Albumin 3.3 L (3.5-5.0) g/dL 01/23/23 01/23/23 01/23/23 Range/Units 09:22 11:10 13:07 WBC (3.8-10.6) k/uL RBC (4.30-5.90) m/uL Hgb (13.0-17.5) gm/dL Hct (39.0-53.0) % MCHC (31.0-37.0) g/dL RDW (11.5-15.5) % Neutrophils # (1.3-7.7) k/uL Lymphocytes # (1.0-4.8) k/uL PT (9.0-12.0) sec INR (<1.2) Sodium (137-145) mmol/L Potassium (3.5-5.1) mmol/L Chloride (98-107) mmol/L Carbon Dioxide (22-30) mmol/L BUN (9-20) mg/dL Calcium (8.4-10.2) mg/dL Total Bilirubin (0.2-1.3) mg/dL ALT (4-49) U/L Alkaline Phosphatase (38-126) U/L Troponin I 0.053 H* 0.055 H* 0.059 H* (0.000-0.034) ng/mL Total Protein (6.3-8.2) g/dL Albumin (3.5-5.0) g/dL Assessment and Plan Assessment: 1. Acute hypoxic respiratory failure related to acute exacerbation systolic CHF - Patient is saturating 92% on O2 at 4 L nasal cannula 2. Acute exacerbation systolic CHF - Patient has been placed on IV Lasix; cardiology recommending to add metoprolol 12.5 mg 3 times a day and start patient on Aldactone 25 mg daily - Echocardiogram with Doppler is ordered - We will monitor strict SADA's, daily weights, renal soft and fluid restricted diet 3. Elevated troponin; troponin is trended and remains flat; likely related to hypoxic respiratory failure 4. Electrolyte imbalance/hypokalemia; supplemented in ED; we will continue to monitor electrolytes and supplement as needed 5. Hyperlipidemia; Lipitor 40 mg by mouth daily at bedtime 6. Hypothyroidism; thyroxine 200 MCG daily 7. History of stage IV lung cancer; patient is currently undergoing chem otherapy; patient will follow-up with oncology as an outpatient 8. Atrial fibrillation; rate controlled on metoprolol
--- NOTE | 2023-01-24 16:11 | P.PN ---
Subjective Progress Note Date: 01/24/23 Principal diagnosis: Acute hypoxic respiratory failure related to acute exacerbation diastolic CHF 58-year-old male who presented to the hospital with increased shortness of breath and lower extremity edema. He states he's been struggling with edema ov er the last several months while undergoing chemotherapy for stage IV lung cancer and was recently treated for pneumonia. He states several of his chemotherapy treatments have had to be canceled due to the edema. The patient states he does follow with a Dr. Pacheco at [facility]. Workup treated in ED reveals EKG shows paced rhythm Telemetry shows paced rhythm with alternating bundle branch block, likely underlying atrial fibrillation Chest x-ray shows cardiomegaly with bibasilar infiltrates and small effusions Venous Doppler negative for DVT Lab data: WBC 12.6, hemoglobin 10.5, hematocrit 35.1, platelet 152, sodium 136, potassium 2.8, BUN 31, creatinine 0.75, magnesium 1.8, AST 46, ALT 53, ALP 508, troponin 0.05, 0.05, 0.05, BNP 13,100 24 hour interval change 01/24/2023 The patient is seen and examined resting comfortably in bed. He states his breathing has not improved, however he does feel that his lower extremity edema is improving. No chest pain or chest pressure. No dizziness. Recent echocardiogram shows reduction in LV function to 20% with severe global hypokinesis, increased left atrial volume, 3+ tricuspid regurgitation, RV enlargement with severe pulmonary hypertension. RVSP 63 mmHg. Device interrogation also reveals new onset of atrial fibrillation in the month of December. This corresponds with his increase in edema and worsening shortness of breath. Optive readings indicate fluid overload. -- cardiology recommending starting anticoagulation with novel agent. Reduce furosemide to twice a day for slow diuresis to avoid hypotension Maximize cardiomyopathy medications as tolerated Objective - Vital Signs Vital signs: Vital Signs Temp 97.5 F L 01/24/23 08:10 Pulse 98 01/24/23 08:10 Resp 16 01/24/23 08:10 BP 114/68 01/24/23 08:10 Pulse Ox 93 L 01/24/23 08:10 FiO2 Intake & Output 01/23/23 01/24/23 01/24/23 18:59 06:59 18:59 Intake Total 490 Output Total 1375 Balance -885 Weight 77.564 kg 77.564 kg Intake: IV 10 Invasive Line 1 10 Oral 480 Output: Urine 1375 - Exam GENERAL: Ill-appearing, well-nourished and in no acute distress. NECK: Supple without JVD or thyromegaly. LUNGS: Breath sounds diminished to auscultation bilaterally. Respiration equal and unlabored. Fine crackles noted in the right lower lobe. HEART: Irregular rate and rhythm. Soft systolic murmur. No rubs or gallops. S1 and S2 heard. EXTREMITIES: Normal range of motion, +2 lower extremity pitting. No clubbing or cyanosis. Peripheral pulses intact and strong. - Labs CBC & Chem 7: 01/23/23 09:22 01/24/23 04:43 Labs: Abnormal Lab Results - Last 24 Hours (Table) 01/24/23 01/24/23 Range/Units 00:41 04:43 Sodium 134 L (137-145) mmol/L Potassium 3.3 L (3.5-5.1) mmol/L Chloride 87 L (98-107) mmol/L Carbon Dioxide 35 H (22-30) mmol/L BUN 35 H (9-20) mg/dL Calcium 8.3 L (8.4-10.2) mg/dL Assessment and Plan Assessment: 1. Acute hypoxic respiratory failure related to acute exacerbation systolic CHF - Patient is saturating 92% on O2 at 4 L nasal cannula 2. Acute exacerbation systolic CHF - Patient has been placed on IV Lasix; cardiology recommending to add metoprolol 12.5 mg 3 times a day and start patient on Aldactone 25 mg daily - Echocardiogram with Doppler is ordered - We will monitor strict SADA's, daily weights, renal soft and fluid restricted diet 3. Elevated troponin; troponin is trended and remains flat; likely related to hypoxic respiratory failure 4. Electrolyte imbalance/hypokalemia; supplemented in ED; we will continue to monitor electrolytes and supplement as needed 5. Hyperlipidemia; Lipitor 40 mg by mouth daily at bedtime 6. Hypothyroidism; thyroxine 200 MCG daily 7. History of stage IV lung cancer; patient is currently undergoing chemotherapy; patient will follow-up with oncology as an outpatient 8. Atrial fibrillation; rate controlled on metoprolol
--- NOTE | 2023-01-24 18:49 | P.CONS ---
History of Present Illness - Reason for Consult Consult date: 01/24/23 LE edema , Lung ca - History of Present Illness The pt is a 58 yr old WM, with a h/o stage 4 lung ca. He is followed by Oncology at [facility], Dr Hastings. The pt was admitted with LE swelling which has been an ongoing problem . This has led to multiple treatment delays. His Oncology history is as follows: He states he was diagnosed about 7-8 mths ago, with primary in the right lung. The pt was unable to tell me the exact type of cancer, or regimen. It appears that there is extensive involvement of the right lung, with L nodes involved b/l. Per the pt, he is not aware of spread outside these areas. He has been on a 3 drug combination ( ? [place] doublet + PD1 immunotherapy) and has been only been able to have about 4 cycles, the most recent in early . Apparently f/u scans had shown some improvement with better aeration on the right, and switch to a lower intensity maintenance was being considered. He states his tolerance of chemo itself has been good, with no major side effects Echo showed EF markedy reduced, around 20%. B/L LE dopplers were negative. CXR showed b/l small effusions, cardiomegaly, poss mild basiliar infiltrates. Labs showed mild anemia at 10.5 Review of Systems Constitutional: Reports weakness Eyes: denies blurred vision, denies pain Ears: deny: decreased hearing, ear discharge, earache, tinnitus Ears, nose, mouth and throat: Denies headache, Denies sore throat Cardiovascular: Reports decreased exercise tolerance, Reports leg edema, Reports shortness of breath Respiratory: Reports dyspnea Gastrointestinal: Denies abdominal pain, Denies diarrhea, Denies nausea, Denies vomiting Musculoskeletal: Reports as per HPI, Reports muscle weakness Integumentary: Denies pruritus, Denies rash Neurological: Reports weakness Psychiatric: Denies anxiety, Denies depression Endocrine: Reports fatigue, Reports weight change Hematologic/Lymphatic: Reports as per HPI Past Medical History Past Medical History: Cancer, Myocardial Infarction ([place]) Additional Past Medical History / Comment(s): lung cancer stage 4, home 02 at 4l History of Any Multi-Drug Resistant Organisms: None Reported Past Surgical History: Pacemaker Past Psychological History: No Psychological Hx Reported Smoking Status: Former smoker Past Alcohol Use History: None Reported Past Drug Use History: None Reported - Past Family History Father Family Medical History: Unable to Obtain Mother Family Medical History: Myocardial Infarction ([place]) Medications and Allergies Home Medications Medication Instructions Recorded Confirmed Type ALPRAZolam [Xanax] 1 mg PO BID PRN 01/23/23 01/23/23 History Albuterol Inhaler [Ventolin Hfa 1 - 2 puff INHALATION RT-Q6H PRN 01/23/23 01/23/23 History Inhaler] Aspirin EC [Ecotrin Low Dose] 81 mg PO DAILY 01/23/23 01/23/23 History Atorvastatin Calcium [Lipitor] 40 mg PO HS 01/23/23 01/23/23 History Ferrous Sulfate [Feosol] 325 mg PO DAILY 01/23/23 01/23/23 History Folic Acid 1 mg PO DAILY 01/23/23 01/23/23 History Furosemide [Lasix] 40 mg PO DAILY 01/23/23 01/23/23 History Ibuprofen [Motrin] 800 mg PO Q8H PRN 01/23/23 01/23/23 History Levothyroxine Sodium 200 mcg PO DAILY 01/23/23 01/23/23 History Lidocaine-Prilocaine Cream [Emla 1 applic TOPICAL DAILY PRN 01/23/23 01/23/23 History Cream 2.5%/2.5%] Magnesium Oxide [Mag-Ox] 400 mg PO DAILY 01/23/23 01/23/23 History Melatonin 10 mg PO HS 01/23/23 01/23/23 History Metoprolol Succinate [Metoprolol 25 mg PO DAILY 01/23/23 01/23/23 History Succinate ER] OLANZapine [ZyPREXA] 5 mg PO HS PRN 01/23/23 01/23/23 History Omeprazole 20 mg PO DAILY 01/23/23 01/23/23 History Ondansetron Odt [Zofran Odt] 8 mg PO Q8HR PRN 01/23/23 01/23/23 History Potassium Chloride ER [K-Dur 20] 20 meq PO DAILY 01/23/23 01/23/23 History Tiotropium 2.5 Mcg/Puff [Spiriva 1 puff INHALATION RT-BID 01/23/23 01/23/23 History Respimat 2.5 Mcg] Apixaban [Eliquis] 5 mg PO BID #60 tab 01/24/23 Rx Allergies Allergy/AdvReac Type Severity Reaction Status Date / Time No Known Allergies Allergy Verified 01/23/23 13:04 Physical Exam Vitals: Vital Signs Temp Pulse Pulse Resp BP BP Pulse Ox 01/23/23 22:43 98.1 F 88 96/71 96 01/23/23 20:00 99 20 100/81 93 L 01/23/23 19:09 96 19 100/81 92 L 01/23/23 19:00 100 23 108/78 89 L 01/23/23 18:32 97.6 F 98 19 108/78 95 01/23/23 18:00 102 H 26 H 107/94 92 L 01/23/23 17:00 101 H 35 H 94 L 01/23/23 16:18 99 20 103/85 94 L 01/23/23 16:00 99 26 H 101/91 94 L 01/23/23 15:02 100 20 101/91 95 01/23/23 15:00 98 26 H 104/90 01/23/23 14:01 101 H 22 104/90 94 L 01/23/23 14:00 97 17 110/79 94 L 01/23/23 13:00 100 38 H 111/91 93 L 01/23/23 12:59 97.6 F 100 22 111/91 88 L 01/23/23 12:23 100 28 H 93 L 01/23/23 10:00 99 18 119/81 90 L 01/23/23 09:26 100 18 123/90 92 L 01/23/23 09:06 22 01/23/23 08:37 107 H 18 01/23/23 08:28 107 H 20 01/23/23 08:08 98.6 F 100 28 H 105/50 90 L Intake and Output 01/23/23 01/23/23 01/24/23 14:59 22:59 06:59 Output Total 950 Balance -950 Output: Urine 950 Other: Weight 77.564 kg - Constitutional General appearance: no acute distress - EENT Eyes: EOMI, PERRLA ENT: hearing grossly normal, normal oropharynx - Neck Neck: no lymphadenopathy Thyroid: bilateral: normal size - Respiratory Respiratory: right: diminished (most of lung field) - Cardiovascular Rhythm: regular Heart sounds: normal: S1, S2 - Gastrointestinal General gastrointestinal: normal bowel sounds, soft - Integumentary Integumentary: normal - Neurologic Neurologic: CNII-XII intact - Musculoskeletal 2+ LE edema Musculoskeletal: generalized weakness, strength equal bilaterally - Psychiatric Psychiatric: A&O x's 3 Results CBC & Chem 7: 01/23/23 09:22 01/24/23 04:43 Labs: Abnormal Lab Results - Last 24 Hours (Table) 01/23/23 01/23/23 01/23/23 Range/Units 09:22 09:22 09:22 WBC 12.6 H (3.8-10.6) k/uL RBC 3.58 L (4.30-5.90) m/uL Hgb 10.5 L (13.0-17.5) gm/dL Hct 35.1 L (39.0-53.0) % MCHC 29.8 L (31.0-37.0) g/dL RDW 20.3 H (11.5-15.5) % Neutrophils # 11.7 H (1.3-7.7) k/uL Lymphocytes # 0.3 L (1.0-4.8) k/uL PT 12.6 H (9.0-12.0) sec INR 1.2 H (<1.2) Sodium 136 L (137-145) mmol/L Potassium 2.8 L (3.5-5.1) mmol/L Chloride 89 L (98-107) mmol/L Carbon Dioxide 36 H (22-30) mmol/L BUN 31 H (9-20) mg/dL Calcium 8.2 L (8.4-10.2) mg/dL Total Bilirubin 1.7 H (0.2-1.3) mg/dL ALT 53 H (4-49) U/L Alkaline Phosphatase 508 H (38-126) U/L Troponin I (0.000-0.034) ng/mL Total Protein 6.1 L (6.3-8.2) g/dL Albumin 3.3 L (3.5-5.0) g/dL 01/23/23 01/23/23 01/23/23 Range/Units 09:22 11:10 13:07 WBC (3.8-10.6) k/uL RBC (4.30-5.90) m/uL Hgb (13.0-17.5) gm/dL Hct (39.0-53.0) % MCHC (31.0-37.0) g/dL RDW (11.5-15.5) % Neutrophils # (1.3-7.7) k/uL Lymphocytes # (1.0-4.8) k/uL PT (9.0-12.0) sec INR (<1.2) Sodium (137-145) mmol/L Potassium (3.5-5.1) mmol/L Chloride (98-107) mmol/L Carbon Dioxide (22-30) mmol/L BUN (9-20) mg/dL Calcium (8.4-10.2) mg/dL Total Bilirubin (0.2-1.3) mg/dL ALT (4-49) U/L Alkaline Phosphatase (38-126) U/L Troponin I 0.053 H* 0.055 H* 0.059 H* (0.000-0.034) ng/mL Total Protein (6.3-8.2) g/dL Albumin (3.5-5.0) g/dL Comments: ECHO report reviewed Chest x-ray: report reviewed Venous US: report reviewed Assessment and Plan (1) Lung cancer Narrative/Plan: Pt history is as described. He did not recall certain aspects. It appears he has had some response, despite multiple treatment delays. Tolerance of treatment has been good. - Treatment on hold currently - F/U with primary oncologist post discharge - Monitor counts while inpt. Counts are adequate currently Current Visit: Yes Status: Acute Code(s): C34.90 - MALIGNANT NEOPLASM OF UNSP PART OF UNSP BRONCHUS OR LUNG SNOMED Code(s): 980767930 (2) Acute pulmonary edema Narrative/Plan: From CHF due to systolic dysfunction. This is unrelated to his cancer history, but has impaired treatment. Defer to Cardiology and admitting service for ongoing treatment Current Visit: Yes Status: Acute Code(s): J81.0 - ACUTE PULMONARY EDEMA SNOMED Code(s): 03489247
[2023-01-24] MEDS: ATORVASTATIN 40 MG TAB PO SCH (20:37)
[2023-01-24] MEDS: APIXABAN 5 MG TAB PO SCH (20:38)
[2023-01-24] MEDS: IPRATROPIUM 0.5 MG/2.5 ML NEBU INHALATION SCH (21:12)
[2023-01-24] MEDS: MELATONIN 5 MG TABLET PO SCH (23:10)
[2023-01-25] MEDS: LEVOTHYROXINE 100 MCG TAB PO SCH (06:34)
[2023-01-25 07:07] LABS: Anisocytosis Slight; Basophils % (A) 0 %; Eosinophils % (A) 0 %; HCT 35.3 % (39.0-53.0); HGB 10.5 gm/dL (13.0-17.5); Hypochromasia Marked; Lymphocytes # (A) 0.5 k/uL (1.0-4.8); Lymphocytes % (A) 3 %; MCH 29.6 pg (25.0-35.0); MCHC 29.6 g/dL (31.0-37.0); MCV 100.2 fL (80.0-100.0); Macrocytosis Moderate; Mean Platelet Volume 8.9; Monocytes # (A) 0.5 k/uL (0-1.0); Monocytes % (A) 3 %; Neutrophils # (A) 15.3 k/uL (1.3-7.7); Neutrophils % (A) 93 %; Platelet Count 154 k/uL (150-450); RBC 3.53 m/uL (4.30-5.90); RDW 19.8 % (11.5-15.5); WBC 16.4 k/uL (3.8-10.6)
[2023-01-25 07:30] LABS: Calcium 8.1 mg/dL (8.4-10.2)
[2023-01-25 08:03] LABS: Potassium 3.6 mmol/L (3.5-5.1)
[2023-01-25] MEDS: MORPHINE SULFATE 4 MG/ML SYRINGE IVP PRN ×2 (08:32→16:51)
[2023-01-25] MEDS: FUROSEMIDE 10 MG/ML 4 ML VIAL IV SCH ×2 (08:33→20:49)
[2023-01-25] MEDS: POTASSIUM CHLORIDE ER 20 MEQ TAB.ER PO SCH (08:36)
[2023-01-25] MEDS: FERROUS SULFATE 325 MG TAB PO SCH (08:36)
[2023-01-25] MEDS: ASPIRIN 81 MG PO SCH (08:36)
[2023-01-25] MEDS: METOPROLOL TARTRATE 12.5 MG TAB PO SCH ×3 (08:36→20:47)
[2023-01-25] MEDS: PANTOPRAZOLE 40 MG TABLET PO SCH (08:36)
[2023-01-25] MEDS: MAGNESIUM OXIDE 400 MG TAB PO SCH (08:37)
[2023-01-25] MEDS: FOLIC ACID 1 MG TAB PO SCH (08:37)
[2023-01-25] MEDS: APIXABAN 5 MG TAB PO SCH ×2 (08:37→20:47)
[2023-01-25] MEDS: SPIRONOLACTONE 25 MG TAB PO SCH (08:37)
[2023-01-25] MEDS: IPRATROPIUM 0.5 MG/2.5 ML NEBU INHALATION SCH ×4 (08:37→21:08)
--- NOTE | 2023-01-25 11:29 | P.PN ---
Subjective Progress Note Date: 01/25/23 HISTORY OF PRESENT ILLNESS: 01/23/2023 The patient is a 58-year-old male who presented to the hospital with increased shortness of breath and lower extremity edema. He states he's been struggling with edema over the last several months while undergoing chemotherapy for stage IV lung cancer and was recently treated for pneumonia. He states several of his chemotherapy treatments have had to be canceled due to the edema. The patient states he does follow with a Dr. Pacheco at [facility]. DIAGNOSTICS: EKG shows paced rhythm Telemetry shows paced rhythm with alternating bundle branch block, likely underlying atrial fibrillation Chest x-ray shows cardiomegaly with bibasilar infiltrates and small effusions Venous Doppler negative for DVT Vitals: Blood pressure 104/90, pulse 101, respiratory rate 22, SpO2 94% on 4 L nasal cannula, afebrile Lab data: WBC 12.6, hemoglobin 10.5, hematocrit 35.1, platelet 152, sodium 136, potassium 2.8, BUN 31, creatinine 0.75, magnesium 1.8, AST 46, ALT 53, ALP 508, troponin 0.05, 0.05, 0.05, BNP 13,100 01/24/2023 The patient was interviewed and examined resting comfortably in bed. He states his breathing has not improved, however he does feel that his lower extremity edema is improving. No chest pain or chest pressure. No dizziness. 01/25/2023 Patient examined this morning at the bedside. Patient denies chest pain or pressure. He continues to report shortness of breath. He remains on IV Lasix 40 mg every 12 hours. Creatinine is stable at 1.13. He continues to have lower extremity edema although improved from yesterday. Vital signs are stable. Echocardiogram completed revealing ejection fraction 20%, severe pulmonary hypertension, status post mitral valve repair, 3+ tricuspid regurgitation PHYSICAL EXAM: VITAL SIGNS: Reviewed. GENERAL: Well-developed in no acute distress. NECK: Supple. No JVD or thyromegaly LUNGS: Respirations even and unlabored. Lungs diminished with bibasilar crackles HEART: Irregular rate and rhythm. S1 and S2 heard. EXTREMITIES: Normal range of motion. No clubbing or cyanosis. Peripheral pulses intact. 2+ bilateral lower extremity edema ASSESSMENT: Shortness of breath Exacerbation of systolic heart failure, EF 25% Persistent atrial fibrillation, currently rate controlled History of biventricular AICD implantation Coronary artery disease, details unknown Elevated troponins, flat trend, acute coronary syndrome ruled out Hypokalemia, resolved Anemia History of stage IV lung cancer, currently undergoing chemotherapy Pulmonary hypertension Chronic hypoxic respiratory failure, on home O2 PLAN: Continue current cardiac medications Continue IV Lasix 40 mg every 12 hours Daily weights, accurate I&O, and monitoring of kidney function Further recommendations pending patient's course Patient to follow-up post discharge with his primary senior talent acquisition specialist Located Within [facility] Nurse practitioner note has been reviewed by physician. Signing provider agrees with the documented findings, assessment, and plan of care. Objective - Vital Signs Vital signs: Vital Signs Temp 97.2 F L 01/25/23 04:00 Pulse 100 01/25/23 08:48 Resp 14 01/25/23 04:00 BP 107/71 01/25/23 04:00 Pulse Ox 93 L 01/25/23 04:00 FiO2 Intake & Output 01/24/23 01/25/23 01/25/23 18:59 06:59 18:59 Intake Total 240 Output Total 800 800 Balance -800 -800 240 Weight 87.2 kg Intake: Oral 240 Output: Urine 800 800 Other: Voiding Method Urinal - Labs CBC & Chem 7: 01/25/23 06:49 01/25/23 06:49 Labs: Abnormal Lab Results - Last 24 Hours (Table) 01/25/23 01/25/23 Range/Units 06:49 06:49 WBC 16.4 H (3.8-10.6) k/uL RBC 3.53 L (4.30-5.90) m/uL Hgb 10.5 L (13.0-17.5) gm/dL Hct 35.3 L (39.0-53.0) % MCV 100.2 H (80.0-100.0) fL MCHC 29.6 L (31.0-37.0) g/dL RDW 19.8 H (11.5-15.5) % Neutrophils # 15.3 H (1.3-7.7) k/uL Lymphocytes # 0.5 L (1.0-4.8) k/uL Sodium 135 L (137-145) mmol/L Chloride 88 L (98-107) mmol/L Carbon Dioxide 40 H (22-30) mmol/L BUN 48 H (9-20) mg/dL Calcium 8.1 L (8.4-10.2) mg/dL
[2023-01-25 11:58] VITALS: BMI 29.2
--- NOTE | 2023-01-25 12:00 | P.PN ---
Subjective 58-year-old male who presented to the hospital with increased shortness of breath and lower extremity edema. He states he's been struggling with edema over the last several months while undergoing chemotherapy for stage IV lung cancer and was recently treated for pneumonia. He states several of his chemotherapy treatments have had to be canceled due to the edema. The patient states he does follow with a Dr. Pacheco at [facility]. Workup treated in ED reveals EKG shows paced rhythm Telemetry shows paced rhythm with alternating bundle branch block, likely underlying atrial fibrillation Chest x-ray shows cardiomegaly with bibasilar infiltrates and small effusions Venous Doppler negative for DVT Lab data: WBC 12.6, hemoglobin 10.5, hematocrit 35.1, platelet 152, sodium 136, potassium 2.8, BUN 31, creatinine 0.75, magnesium 1.8, AST 46, ALT 53, ALP 508, troponin 0.05, 0.05, 0.05, BNP 13,100 24 hour interval change 01/24/2023 The patient is seen and examined resting comfortably in bed. He states his breathing has not improved, however he does feel that his lower extremity edema is improving. No chest pain or chest pressure. No dizziness. Recent echocardiogram shows reduction in LV function to 20% with severe global hypokinesis, increased left atrial volume, 3+ tricuspid regurgitation, RV enla rgement with severe pulmonary hypertension. RVSP 63 mmHg. Device interrogation also reveals new onset of atrial fibrillation in the month of December. This corresponds with his increase in edema and worsening shortness of breath. Optive readings indicate fluid overload. -- cardiology recommending starting anticoagulation with novel agent. Reduce furosemide to twice a day for slow diuresis to avoid hypotension Maximize cardiomyopathy medications as tolerated Resume and the care of the patient on 01/25/2023 This is a pleasant 58 years old male with past medical history of heart failure and ejection fraction of 20-25% presents with worsening dyspnea and bilateral leg edema suspicious for acute CHF exacerbation and currently he is on IV Lasix 40 mg twice daily, he is awake and alert but still have tachypnea and his breathing fast and short while at rest, is also complained from exertional dyspnea with coughing and brown phlegm but no chest pain. He uses for liters of oxygen at home. He has right lung cancer on chemotherapy and Dr. Yadav follow with him closely. We ordered production consult on in and pulmonary consults. Objective - Vital Signs Vital signs: Vital Signs Temp 97.2 F L 01/25/23 04:00 Pulse 100 01/25/23 08:48 Resp 14 01/25/23 04:00 BP 107/71 01/25/23 04:00 Pulse Ox 93 L 01/25/23 04:00 FiO2 Intake & Output 01/24/23 01/25/23 01/25/23 18:59 06:59 18:59 Intake Total 240 Output Total 800 800 Balance -800 -800 240 Weight 87.2 kg Intake: Oral 240 Output: Urine 800 800 Other: Voiding Method Urinal - Exam GENERAL: The patient is alert and oriented x3, not in any acute distress. Well developed, well nourished. HEENT: Pupils are round and equally reacting to light. EOMI. No scleral icterus. No conjunctival pallor. Normocephalic, atraumatic. No pharyngeal erythema. No thyromegaly. CARDIOVASCULAR: S1 and S2 present. No murmurs, rubs, or gallops. -PULMONARY: Chest is clear to auscultation, bilateral harsh breath sounds with prolonged expiration, no wheezing or crackles. ABDOMEN: Soft, nontender, nondistended, normoactive bowel sounds. No palpable organomegaly. MUSCULOSKELETAL: No joint swelling or deformity. -EXTREMITIES: No cyanosis, clubbing, , 3+ bilateral pitting leg edema. NEUROLOGICAL: Gross neurological examination did not reveal any focal deficits. SKIN: No rashes. no petechiae. - Labs CBC & Chem 7: 01/25/23 06:49 01/25/23 06:49 Labs: Abnormal Lab Results - Last 24 Hours (Table) 01/25/23 01/25/23 Range/Units 06:49 06:49 WBC 16.4 H (3.8-10.6) k/uL RBC 3.53 L (4.30-5.90) m/uL Hgb 10.5 L (13.0-17.5) gm/dL Hct 35.3 L (39.0-53.0) % MCV 100.2 H (80.0-100.0) fL MCHC 29.6 L (31.0-37.0) g/dL RDW 19.8 H (11.5-15.5) % Neutrophils # 15.3 H (1.3-7.7) k/uL Lymphocytes # 0.5 L (1.0-4.8) k/uL Sodium 135 L (137-145) mmol/L Chloride 88 L (98-107) mmol/L Carbon Dioxide 40 H (22-30) mmol/L BUN 48 H (9-20) mg/dL Calcium 8.1 L (8.4-10.2) mg/dL Assessment and Plan Assessment: 1. Acute hypoxic respiratory failure related to acute exacerbation systolic CHF. Also history of lung cancer. - Patient is saturating 92% on O2 at 4 L nasal cannula - In view of persistent tachypnea and worsening leukocytosis. We will check a pro-calcitonin and ask for pulmonary consult. Patient says that he is on oxygen at home 4 L but he has no history of COPD. He was ex smoker and he quit in 2017 when he was diagnosed with cancer 2. Acute exacerbation systolic CHF - Patient has been placed on IV Lasix; cardiology recommending to add metoprolol 12.5 mg 3 times a day and start patient on Aldactone 25 mg daily - Echocardiogram with Doppler is ordered - We will monitor strict SADA's, daily weights, renal soft and fluid restricted diet 3. Elevated troponin; troponin is trended and remains flat; likely related to hypoxic respiratory failure 4. Electrolyte imbalance/hypokalemia; supplemented in ED; we will continue to monitor electrolytes and supplement as needed 5. Hyperlipidemia; Lipitor 40 mg by mouth daily at bedtime 6. Hypothyroidism; thyroxine 200 MCG daily 7. History of stage IV lung cancer; patient is currently undergoing chemot herapy; patient will follow-up with oncology as an outpatient 8. Atrial fibrillation; rate controlled on metoprolol DVT prophylaxis: Eliquis GI prophylaxis Protonix
--- NOTE | 2023-01-25 12:09 | P.PN ---
Subjective Progress Note Date: 01/25/23 Principal diagnosis: lung cancer At today's visit patient reports feeling well. He reports shortness of breath on exertion. Breathing is mildly labored. Patient brought in records from his primary oncologist as requested, however, the records do not show what treatment he is on/number of cycles/plan of care. Will request records from his primary oncologist office. Objective - Vital Signs Vital signs: Vital Signs Temp 97.2 F L 01/25/23 04:00 Pulse 81 01/25/23 11:59 Resp 14 01/25/23 04:00 BP 107/71 01/25/23 04:00 Pulse Ox 99 01/25/23 12:01 FiO2 Intake & Output 01/24/23 01/25/23 01/25/23 18:59 06:59 18:59 Intake Total 240 Output Total 800 800 Balance -800 -800 240 Weight 87.2 kg 87.2 kg Intake: Oral 240 Output: Urine 800 800 Other: Voiding Method Urinal - Constitutional General appearance: Present: average body habitus, no acute distress - EENT Eyes: Present: anicteric sclerae, EOMI ENT: Present: hearing grossly normal - Respiratory Details: breathing labored Respiratory: right: rales, rhonchi, left: CTA - Cardiovascular Rhythm: regular Heart sounds: normal: S1, S2 Abnormal Heart Sounds: Absent: systolic murmur, diastolic murmur, rub, S3 Gallop, S4 Gallop, click, other - Integumentary Integumentary: Present: normal - Neurologic Neurologic: Present: CNII-XII intact - Musculoskeletal Musculoskeletal: Present: strength equal bilaterally - Psychiatric Psychiatric: Present: A&O x's 3, appropriate affect, intact judgment & insight - Labs CBC & Chem 7: 01/25/23 06:49 01/25/23 06:49 Labs: Abnormal Lab Results - Last 24 Hours (Table) 01/25/23 01/25/23 Range/Units 06:49 06:49 WBC 16.4 H (3.8-10.6) k/uL RBC 3.53 L (4.30-5.90) m/uL Hgb 10.5 L (13.0-17.5) gm/dL Hct 35.3 L (39.0-53.0) % MCV 100.2 H (80.0-100.0) fL MCHC 29.6 L (31.0-37.0) g/dL RDW 19.8 H (11.5-15.5) % Neutrophils # 15.3 H (1.3-7.7) k/uL Lymphocytes # 0.5 L (1.0-4.8) k/uL Sodium 135 L (137-145) mmol/L Chloride 88 L (98-107) mmol/L Carbon Dioxide 40 H (22-30) mmol/L BUN 48 H (9-20) mg/dL Calcium 8.1 L (8.4-10.2) mg/dL Assessment and Plan (1) Acute pulmonary edema Current Visit: Yes Status: Acute Priority: High Code(s): J81.0 - ACUTE PULMONARY EDEMA SNOMED Code(s): 30740620 (2) Lung cancer Current Visit: Yes Status: Acute Priority: High Code(s): C34.90 - MALIGNANT NEOPLASM OF UNSP PART OF UNSP BRONCHUS OR LUNG SNOMED Code(s): 803743316 Plan: Lung cancer: -He did not recall certain aspects of treatment received. It appears he has had some response, despite multiple treatment delays. Tolerance of treatment has been good. - Treatment on hold currently - Patient brought in records from his primary oncologist as requested, however, the records do not show what treatment he is on/number of cycles/plan of care. Will request records from his primary oncologist office. - F/U with primary oncologist post discharge - Monitor counts while inpt. Counts are adequate currently Acute pulmonary edema: -From CHF due to systolic dysfunction. This is unrelated to his cancer history, but has impaired treatment. Defer to Cardiology and admitting service for ongoing treatment
--- NOTE | 2023-01-25 13:28 | P.CNPUL ---
History of Present Illness Consult date: 01/25/23 Requesting physician: Andriy E Sheet Reason for consult: hypoxemia Chief complaint: Shortness of breath History of present illness: This is a 58-year-old white male with history of stage IV lung cancer, this was diagnosed about 7-8 months ago. For his lung cancer, the patient is being followed by oncology at [facility]. And he did receive chemotherapy and immunotherapy. Patient is also known to have history of systolic congestive heart failure, ejection fraction of 20%, patient presented to the hospital on 01/23/2023 with mostly symptoms of shortness of breath and significant swelling in lower extremities. Supposedly the patient was treated recently in an outside institution for pneumonia, although looking at his chest x-ray from this admission, it seems to be mostly consistent with congestive heart failure, nonetheless the patient did have leukocytosis with WBC count of 16,000, he had elevated troponin level of 0.059, and a BNP level of 15,100. Screening for Covid19 was negative. Echocardiogram on this admission showed severely reduced global LV function with ejection fraction of 20% he was also found to have 3+ tricuspid regurgitation and severe pulmonary hypertension. Considering his shortness of breath, this consult was initiated. Patient denies any fever or chills, he had intermittent cough, shortness of breath, no chest pain, his main concern seems to be related to significant swelling in his lower extremities bilaterally. Patient is now on Lasix at 40 mg IV push twice a day, and his shortness of breath as well as his bipedal edema seems to be responding well to treatment. Patient is also on Aldactone 25 mg daily. Review of Systems Constitutional: Generalized weakness, no fever no chills. Eyes: Negative Ears: deny: decreased hearing, ear discharge, earache, tinnitus Ears, nose, mouth and throat: Denies headache, Denies sore throat Cardiovascular: As noted in HPI Respiratory: As noted in HPI Gastrointestinal: Denies abdominal pain, Denies diarrhea, Denies nausea, Denies vomiting Musculoskeletal: Negative Integumentary: Negative Neurological: Generalized weakness Psychiatric: No symptoms of active depression Endocrine: Mostly fatigue and weight loss Hematologic/Lymphatic: No history of stage IV bronchogenic carcinoma Past Medical History Past Medical History: Cancer, Myocardial Infarction ([place]) Additional Past Medical History / Comment(s): lung cancer stage 4, home 02 at 4l Last Myocardial Infarction Date:: 2021 History of Any Multi-Drug Resistant Organisms: None Reported Past Surgical History: Pacemaker Additional Past Surgical History / Comment(s): CABG 05/2017. Ostomy surgery 2009, Mediport 2022 Past Anesthesia/Blood Transfusion Reactions: No Reported Reaction Type of Cardiac Device: Permanent Pacemaker Device Placement Date:: 2021 Past Psychological History: No Psychological Hx Reported Smoking Status: Former smoker Past Alcohol Use History: None Reported Past Drug Use History: None Reported - Past Family History Father Family Medical History: Unable to Obtain Mother Family Medical History: Myocardial Infarction ([place]) Medications and Allergies Home Medications Medication Instructions Recorded Confirmed Type ALPRAZolam [Xanax] 1 mg PO BID PRN 01/23/23 01/23/23 History Albuterol Inhaler [Ventolin Hfa 1 - 2 puff INHALATION RT-Q6H PRN 01/23/23 01/23/23 History Inhaler] Aspirin EC [Ecotrin Low Dose] 81 mg PO DAILY 01/23/23 01/23/23 History Atorvastatin Calcium [Lipitor] 40 mg PO HS 01/23/23 01/23/23 History Ferrous Sulfate [Feosol] 325 mg PO DAILY 01/23/23 01/23/23 History Folic Acid 1 mg PO DAILY 01/23/23 01/23/23 History Furosemide [Lasix] 40 mg PO DAILY 01/23/23 01/23/23 History Ibuprofen [Motrin] 800 mg PO Q8H PRN 01/23/23 01/23/23 History Levothyroxine Sodium 200 mcg PO DAILY 01/23/23 01/23/23 History Lidocaine-Prilocaine Cream [Emla 1 applic TOPICAL DAILY PRN 01/23/23 01/23/23 History Cream 2.5%/2.5%] Magnesium Oxide [Mag-Ox] 400 mg PO DAILY 01/23/23 01/23/23 History Melatonin 10 mg PO HS 01/23/23 01/23/23 History Metoprolol Succinate [Metoprolol 25 mg PO DAILY 01/23/23 01/23/23 History Succinate ER] OLANZapine [ZyPREXA] 5 mg PO HS PRN 01/23/23 01/23/23 History Omeprazole 20 mg PO DAILY 01/23/23 01/23/23 History Ondansetron Odt [Zofran Odt] 8 mg PO Q8HR PRN 01/23/23 01/23/23 History Potassium Chloride ER [K-Dur 20] 20 meq PO DAILY 01/23/23 01/23/23 History Tiotropium 2.5 Mcg/Puff [Spiriva 1 puff INHALATION RT-BID 01/23/23 01/23/23 History Respimat 2.5 Mcg] Apixaban [Eliquis] 5 mg PO BID #60 tab 01/24/23 Rx Allergies Allergy/AdvReac Type Severity Reaction Status Date / Time No Known Allergies Allergy Verified 01/23/23 13:04 Physical Exam Vitals: Vital Signs Temp Pulse Pulse Resp BP Pulse Ox 01/25/23 12:01 99 01/25/23 11:59 84 01/25/23 08:48 100 01/25/23 08:38 96 01/25/23 04:00 97.2 F L 64 14 107/71 93 L 01/24/23 23:52 97.7 F 68 14 103/76 94 L 01/24/23 21:50 116/74 01/24/23 21:24 96 01/24/23 21:12 90 01/24/23 20:00 98.2 F 82 14 110/78 94 L 01/24/23 15:00 97.9 F 81 18 127/81 97 Intake and Output 01/24/23 01/25/23 01/25/23 22:59 06:59 14:59 Intake Total 240 Output Total 400 600 Balance -400 -600 240 Intake: Oral 240 Output: Urine 400 600 Other: Voiding Method Urinal Urinal Weight 87.2 kg 87.2 kg Physical Exam: Revealed a 58-year-old white male in no distress on 4 L nasal cannula Head: Atraumatic normocephalic. HEENT:[Neck is supple.] [No neck masses.] [No thyromegaly.] Positive JVD. Chest: [Crackles and rhonchi noted bilaterally. Cardiac Exam: [Normal S1 and S2, no S3 gallop, 2/6 systolic murmur thought the precordium. Abdomen: [Soft, nontender, no megaly, no rebound, no guarding, normal bowel sounds.] Extremities: [No clubbing, 3+ bipedal edema no cyanosis. Neurological Exam: Alert and oriented 3. [No focal neurologic deficit.] Psychiatric: Normal mood affect and normal mental status examination. Skin: No rashes. Results - Laboratory Findings CBC and BMP: 01/25/23 06:49 01/25/23 06:49 PT/INR, D-dimer PT 12.6 sec (9.0-12.0) H 01/23/23 09:22 INR 1.2 (<1.2) H 01/23/23 09:22 Abnormal lab findings: Abnormal Labs 01/23/23 01/23/23 01/23/23 09:22 09:22 09:22 WBC 12.6 H RBC 3.58 L Hgb 10.5 L Hct 35.1 L MCV MCHC 29.8 L RDW 20.3 H Neutrophils # 11.7 H Lymphocytes # 0.3 L PT 12.6 H INR 1.2 H Sodium 136 L Potassium 2.8 L Chloride 89 L Carbon Dioxide 36 H BUN 31 H Calcium 8.2 L Total Bilirubin 1.7 H ALT 53 H Alkaline Phosphatase 508 H Troponin I Total Protein 6.1 L Albumin 3.3 L 01/23/23 01/23/23 01/23/23 09:22 11:10 13:07 WBC RBC Hgb Hct MCV MCHC RDW Neutrophils # Lymphocytes # PT INR Sodium Potassium Chloride Carbon Dioxide BUN Calcium Total Bilirubin ALT Alkaline Phosphatase Troponin I 0.053 H* 0.055 H* 0.059 H* Total Protein Albumin 01/24/23 01/24/23 01/25/23 00:41 04:43 06:49 WBC 16.4 H RBC 3.53 L Hgb 10.5 L Hct 35.3 L MCV 100.2 H MCHC 29.6 L RDW 19.8 H Neutrophils # 15.3 H Lymphocytes # 0.5 L PT INR Sodium 134 L Potassium 3.3 L Chloride 87 L Carbon Dioxide 35 H BUN 35 H Calcium 8.3 L Total Bilirubin ALT Alkaline Phosphatase Troponin I Total Protein Albumin 01/25/23 06:49 WBC RBC Hgb Hct MCV MCHC RDW Neutrophils # Lymphocytes # PT INR Sodium 135 L Potassium Chloride 88 L Carbon Dioxide 40 H BUN 48 H Calcium 8.1 L Total Bilirubin ALT Alkaline Phosphatase Troponin I Total Protein Albumin - Diagnostic Findings Chest x-ray: image reviewed (As noted in HPI, chest x-ray is consistent with congestive heart failure, underlying pneumonia is not entirely ruled out but felt to be less likely) Assessment and Plan Assessment: Impression: Acute hypoxic episode of failure Acute systolic congestive heart failure/pulmonary edema, ejection fraction of 20% History of underlying COPD History of underlying bronchogenic carcinoma stage IV Severe pulmonary hypertension and cor pulmonale Chronic tricuspid regurgitation and pulmonary hypertension Recommendation: Continue diuretics, Lasix and Aldactone as ordered Continue bronchodilators Continue GI and DVT prophylaxis Resume cardiac meds cardiology to see on consultation for his LV dysfunction Oncology is following regarding his underlying bronchogenic carcinoma Continue oxygen and titrate accordingly We will continue to follow Time with Patient: Greater than 30
[2023-01-25] MEDS: MELATONIN 5 MG TABLET PO SCH (20:47)
[2023-01-25] MEDS: ATORVASTATIN 40 MG TAB PO SCH (20:47)
[2023-01-26] MEDS: MORPHINE SULFATE 4 MG/ML SYRINGE IVP PRN ×4 (00:47→23:43)
[2023-01-26] MEDS: LEVOTHYROXINE 100 MCG TAB PO SCH (06:23)
[2023-01-26] MEDS: IPRATROPIUM 0.5 MG/2.5 ML NEBU INHALATION SCH ×4 (07:39→19:56)
[2023-01-26] MEDS: ALBUTEROL NEBULIZED 2.5 MG/3 ML INHALATION PRN ×3 (07:39→15:14)
[2023-01-26] MEDS: METOPROLOL TARTRATE 12.5 MG TAB PO SCH ×3 (09:08→23:42)
[2023-01-26] MEDS: FOLIC ACID 1 MG TAB PO SCH (09:08)
[2023-01-26] MEDS: MAGNESIUM OXIDE 400 MG TAB PO SCH (09:08)
[2023-01-26] MEDS: FUROSEMIDE 10 MG/ML 4 ML VIAL IV SCH ×3 (09:08→23:43)
[2023-01-26] MEDS: APIXABAN 5 MG TAB PO SCH ×2 (09:09→19:54)
[2023-01-26] MEDS: SPIRONOLACTONE 25 MG TAB PO SCH (09:09)
[2023-01-26] MEDS: ASPIRIN 81 MG PO SCH (09:09)
[2023-01-26] MEDS: PANTOPRAZOLE 40 MG TABLET PO SCH (09:09)
[2023-01-26] MEDS: FERROUS SULFATE 325 MG TAB PO SCH (09:09)
[2023-01-26] MEDS: POTASSIUM CHLORIDE ER 20 MEQ TAB.ER PO SCH (09:10)
--- NOTE | 2023-01-26 10:22 | P.PN ---
Subjective Progress Note Date: 01/26/23 HISTORY OF PRESENT ILLNESS: 01/23/2023 The patient is a 58-year-old male who presented to the hospital with increased shortness of breath and lower extremity edema. He states he's been struggling with edema over the last several months while undergoing chemotherapy for stage IV lung cancer and was recently treated for pneumonia. He states several of his chemotherapy treatments have had to be canceled due to the edema. The patient states he does follow with a Dr. Pacheco at [facility]. DIAGNOSTICS: EKG shows paced rhythm Telemetry shows paced rhythm with alternating bundle branch block, likely underlying atrial fibrillation Chest x-ray shows cardiomegaly with bibasilar infiltrates and small effusions Venous Doppler negative for DVT Vitals: Blood pressure 104/90, pulse 101, respiratory rate 22, SpO2 94% on 4 L nasal cannula, afebrile Lab data: WBC 12.6, hemoglobin 10.5, hematocrit 35.1, platelet 152, sodium 136, potassium 2.8, BUN 31, creatinine 0.75, magnesium 1.8, AST 46, ALT 53, ALP 508, troponin 0.05, 0.05, 0.05, BNP 13,100 01/24/2023 The patient was interviewed and examined resting comfortably in bed. He states his breathing has not improved, however he does feel that his lower extremity edema is improving. No chest pain or chest pressure. No dizziness. 01/25/2023 Patient examined this morning at the bedside. Patient denies chest pain or pressure. He continues to report shortness of breath. He remains on IV Lasix 40 mg every 12 hours. Creatinine is stable at 1.13. He continues to have lower extremity edema although improved from yesterday. Vital signs are stable. Echocardiogram completed revealing ejection fraction 20%, severe pulmonary hypertension, status post mitral valve repair, 3+ tricuspid regurgitation 01/26/2023 Patient examined this morning at the bedside. Patient denies chest pain or pressure. He continues to report shortness of breath which she states is a little bit worse than yesterday. He also reports that his lower extremity edema appears to be worsening today. PHYSICAL EXAM: VITAL SIGNS: Reviewed. GENERAL: Well-developed in no acute distress. NECK: Supple. No JVD or thyromegaly LUNGS: Respirations even and unlabored. Lungs diminished with bibasilar crackles HEART: Irregular rate and rhythm. S1 and S2 heard. EXTREMITIES: Normal range of motion. No clubbing or cyanosis. Peripheral pulses intact. 2-3+ bilateral lower extremity edema ASSESSMENT: Shortness of breath Exacerbation of systolic heart failure, EF 25% Persistent atrial fibrillation, currently rate controlled History of biventricular AICD implantation Coronary artery disease, details unknown Elevated troponins, flat trend, acute coronary syndrome ruled out Hypokalemia, resolved Anemia History of stage IV lung cancer, currently undergoing chemotherapy Pulmonary hypertension Chronic hypoxic respiratory failure, on home O2 PLAN: Continue current cardiac medications Awaiting kidney function results this morning. If stable, will increase Lasix to Q8 hours Daily weights, accurate I&O, and monitoring of kidney function Further recommendations pending patient's course Patient to follow-up post discharge with his primary actuarial clerk [facility] Nurse practitioner note has been reviewed by physician. Signing provider agrees with the documented findings, assessment, and plan of care. Objective - Vital Signs Vital signs: Vital Signs Temp 97.7 F 01/26/23 08:00 Pulse 81 01/26/23 08:00 Resp 22 01/26/23 08:00 BP 104/73 01/26/23 08:00 Pulse Ox 88 L 01/26/23 08:00 FiO2 Intake & Output 01/25/23 01/26/23 01/26/23 18:59 06:59 18:59 Intake Total 240 540 240 Output Total 300 600 Balance -60 -60 240 Weight 87.2 kg 87.5 kg Intake: Oral 240 540 240 Output: Urine 300 600 Other: Voiding Method Urinal Urinal - Labs CBC & Chem 7: 01/25/23 06:49 01/25/23 06:49 Labs: Abnormal Lab Results - Last 24 Hours (Table) 01/25/23 Range/Units 06:49 Procalcitonin 0.48 H (0.02-0.09) ng/mL
[2023-01-26 10:43] LABS: African American GFR (CKD) >90 (>60 ml/min/1.73 sqM); Anion Gap 9 mmol/L; Blood Urea Nitrogen 50 mg/dL (9-20); Calcium 8.2 mg/dL (8.4-10.2); Carbon Dioxide 36 mmol/L (22-30); Chloride 87 mmol/L (98-107); Glucose 118 mg/dL (74-99); Non-African American GFR(CKD) 89 (>60 ml/min/1.73 sqM); Potassium 3.5 mmol/L (3.5-5.1); Sodium 132 mmol/L (137-145)
[2023-01-26 10:54] LABS: Anisocytosis Slight; Basophils % (A) 0 %; Eosinophils % (A) 0 %; HCT 35.1 % (39.0-53.0); HGB 10.8 gm/dL (13.0-17.5); Hypochromasia Marked; Lymphocytes # (A) 0.3 k/uL (1.0-4.8); Lymphocytes % (A) 2 %; MCHC 30.8 g/dL (31.0-37.0); MCV 100.5 fL (80.0-100.0); Macrocytosis Moderate; Mean Platelet Volume 8.7; Monocytes # (A) 0.4 k/uL (0-1.0); Monocytes % (A) 3 %; Neutrophils # (A) 12.5 k/uL (1.3-7.7); Neutrophils % (A) 94 %; Platelet Count 168 k/uL (150-450); RBC 3.49 m/uL (4.30-5.90); RDW 19.8 % (11.5-15.5); WBC 13.3 k/uL (3.8-10.6)
[2023-01-26] MEDS: PIPERACILLIN-TAZOBACTAM 3.375 GM in SODIUM CHLORIDE 0.9% 100 ML IVPB SCH ×2 (10:56→17:51)
--- NOTE | 2023-01-26 12:35 | P.PN ---
Subjective Progress Note Date: 01/26/23 Principal diagnosis: Acute hypoxic respiratory failure, multifactorial mostly related to acute systolic congestive heart failure, ejection fraction of 20% This is a 58-year-old white male with history of stage IV lung cancer, this was diagnosed about 7-8 months ago. For his lung cancer, the patient is being followed by oncology at [facility]. And he did receive chemotherapy and immunotherapy. Patient is also known to have history of systolic congestive heart failure, ejection fraction of 20%, patient presented to the hospital on 01/23/2023 with mostly symptoms of shortness of breath and significant swelling in lower extremities. Supposedly the patient was treated recently in an outside institution for pneumonia, although looking at his chest x-ray from this admission, it seems to be mostly consistent with congestive heart failure, nonetheless the patient did have leukocytosis with WBC count of 16,000, he had elevated troponin level of 0.059, and a BNP level of 15,100. Screening for Covid19 was negative. Echocardiogram on this admission showed severely reduced global LV function with ejection fraction of 20% he was also found to have 3+ tricuspid regurgitation and severe pulmonary hypertension. Considering his shortness of breath, this consult was initiated. Patient denies any fever or chills, he had intermittent cough, shortness of breath, no chest pain, his main concern seems to be related to significant swelling in his lower extremities bilaterally. Patient is now on Lasix at 40 mg IV push twice a day, and his shortness of breath as well as his bipedal edema seems to be responding well to treatment. Patient is also on Aldactone 25 mg daily. Reevaluated today on 01/26/2023, patient remains on suction remains on diuretics, remains on bronchodilators, he is also on beta blockers, improving, less shortness of breath, less swelling in the lower extremities noted. Leukocytosis is improving hemoglobin is 10.8. Electrolytes are normal except for bicarb of 36. BUN of 50 creatinine 0.94. Pro-calcitonin level 0.48. Patient is on Zosyn. Objective - Vital Signs Vital signs: Vital Signs Temp 97.6 F 01/26/23 10:59 Pulse 96 01/26/23 11:23 Resp 28 H 01/26/23 10:59 BP 108/68 01/26/23 10:59 Pulse Ox 91 L 05/16/23 10:59 FiO2 Intake & Output 01/25/23 01/26/23 01/26/23 18:59 06:59 18:59 Intake Total 240 540 240 Output Total 300 600 225 Balance -60 -60 15 Weight 87.2 kg 87.5 kg Intake: Oral 240 540 240 Output: Urine 300 600 225 Other: Voiding Method Urinal Urinal - Exam Physical Exam: Revealed a 58-year-old white male in no distress on 5 L nasal cannula Head: Atraumatic normocephalic. HEENT:[Neck is supple.] [No neck masses.] [No thyromegaly.] Positive JVD. Chest: [Crackles and rhonchi noted bilaterally. Cardiac Exam: [Normal S1 and S2, no S3 gallop, 2/6 systolic murmur thought the precordium. Abdomen: [Soft, nontender, no megaly, no rebound, no guarding, normal bowel sounds.] Extremities: [No clubbing, 2+ bipedal edema no cyanosis. Neurological Exam: Alert and oriented 3. [No focal neurologic deficit.] Psychiatric: Normal mood affect and normal mental status examination. Skin: No rashes. - Labs CBC & Chem 7: 01/26/23 09:53 01/26/23 09:53 Labs: Abnormal Lab Results - Last 24 Hours (Table) 01/25/23 01/26/23 01/26/23 Range/Units 06:49 09:53 09:53 WBC 13.3 H (3.8-10.6) k/uL RBC 3.49 L (4.30-5.90) m/uL Hgb 10.8 L (13.0-17.5) gm/dL Hct 35.1 L (39.0-53.0) % MCV 100.5 H (80.0-100.0) fL MCHC 30.8 L (31.0-37.0) g/dL RDW 19.8 H (11.5-15.5) % Neutrophils # 12.5 H (1.3-7.7) k/uL Lymphocytes # 0.3 L (1.0-4.8) k/uL Sodium 132 L (137-145) mmol/L Chloride 87 L (98-107) mmol/L Carbon Dioxide 36 H (22-30) mmol/L BUN 50 H (9-20) mg/dL Glucose 118 H (74-99) mg/dL Calcium 8.2 L (8.4-10.2) mg/dL Procalcitonin 0.48 H (0.02-0.09) ng/mL Assessment and Plan Assessment: Impression: Acute hypoxic episode of failure Acute systolic congestive heart failure/pulmonary edema, ejection fraction of 20%, cannot rule out underlying pneumonia/postobstructive pneumonia, considering pro calcitonin level is elevated will empirically continue Zosyn. History of underlying COPD History of underlying bronchogenic carcinoma stage IV Severe pulmonary hypertension and cor pulmonale Chronic tricuspid regurgitation and pulmonary hypertension Recommendation: Continue diuretics, Lasix and Aldactone as ordered Continue Zosyn mostly because pro calcitonin level is elevated Continue bronchodilators Continue GI and DVT prophylaxis Oncology is following regarding his underlying bronchogenic carcinoma Continue oxygen and titrate accordingly Prognosis remains relatively poor and guarded We will continue to follow Time with Patient: Less than 30
--- NOTE | 2023-01-26 19:33 | P.PN ---
Subjective 58-year-old male who presented to the hospital with increased shortness of breath and lower extremity edema. He states he's been struggling with edema over the last several months while undergoing chemotherapy for stage IV lung cancer and was recently treated for pneumonia. He states several of his chemotherapy treatments have had to be canceled due to the edema. The patient states he does follow with a Dr. Pacheco at [facility]. Workup treated in ED reveals EKG shows paced rhythm Telemetry shows paced rhythm with alternating bundle branch block, likely underlying atrial fibrillation Chest x-ray shows cardiomegaly with bibasilar infiltrates and small effusions Venous Doppler negative for DVT Lab data: WBC 12.6, hemoglobin 10.5, hematocrit 35.1, platelet 152, sodium 136, potassium 2.8, BUN 31, creatinine 0.75, magnesium 1.8, AST 46, ALT 53, ALP 508, troponin 0.05, 0.05, 0.05, BNP 13,100 24 hour interval change 01/24/2023 The patient is seen and examined resting comfortably in bed. He states his breathing has not improved, however he does feel that his lower extremity edema is improving. No chest pain or chest pressure. No dizziness. Recent echocardiogram shows reduction in LV function to 20% with severe global hypokinesis, increased left atrial volume, 3+ tricuspid regurgitation, RV enla rgement with severe pulmonary hypertension. RVSP 63 mmHg. Device interrogation also reveals new onset of atrial fibrillation in the month of December. This corresponds with his increase in edema and worsening shortness of breath. Optive readings indicate fluid overload. -- cardiology recommending starting anticoagulation with novel agent. Reduce furosemide to twice a day for slow diuresis to avoid hypotension Maximize cardiomyopathy medications as tolerated 01/25/2023 This is a pleasant 58 years old male with past medical history of heart failure and ejection fraction of 20-25% presents with worsening dyspnea and bilateral leg edema suspicious for acute CHF exacerbation and currently he is on IV Lasix 40 mg twice daily, he is awake and alert but still have tachypnea and his breathing fast and short while at rest, is also complained from exertional dyspnea with coughing and brown phlegm but no chest pain. He uses for liters of oxygen at home. He has right lung cancer on chemotherapy and Dr. Yadav follow with him closely. We ordered production consult on in and pulmonary consults. 01/26/2023 Patient thinks he is not improving today and actually he is worth, his more short of breath and more leg swelling. elevated pro-calcitonin and possible infiltrate on the chest x-ray as well as leukocytosis therefore we started the patient on Zosyn. Sputum culture sent and result is pending. Also Lasix dose was increased to 40 mg twice a day in to 3 times a day. While he remains on Eliquis 5 mg. His oxygen saturation today is 90% on 5 L which is slightly worse compared to yesterday. Objective - Vital Signs Vital signs: Vital Signs Temp 97.6 F 01/26/23 10:59 Pulse 88 01/26/23 11:06 Resp 28 H 01/26/23 10:59 BP 108/68 01/26/23 10:59 Pulse Ox 91 L 01/26/23 10:59 FiO2 Intake & Output 01/25/23 01/26/23 01/26/23 18:59 06:59 18:59 Intake Total 240 540 240 Output Total 300 600 225 Balance -60 -60 15 Weight 87.2 kg 87.5 kg Intake: Oral 240 540 240 Output: Urine 300 600 225 Other: Voiding Method Urinal Urinal - Exam GENERAL: The patient is alert and oriented x3, not in any acute distress. Well developed, well nourished. HEENT: Pupils are round and equally reacting to light. EOMI. No scleral icterus. No conjunctival pallor. Normocephalic, atraumatic. No pharyngeal erythema. No thyromegaly. CARDIOVASCULAR: S1 and S2 present. No murmurs, rubs, or gallops. -PULMONARY: Chest is clear to auscultation, bilateral harsh breath sounds with prolonged expiration, no wheezing or crackles. ABDOMEN: Soft, nontender, nondistended, normoactive bowel sounds. No palpable organomegaly. MUSCULOSKELETAL: No joint swelling or deformity. -EXTREMITIES: No cyanosis, clubbing, , 3+ bilateral pitting leg edema. NEUROLOGICAL: Gross neurological examination did not reveal any focal deficits. SKIN: No rashes. no petechiae. - Labs CBC & Chem 7: 01/26/23 09:53 01/26/23 09:53 Labs: Abnormal Lab Results - Last 24 Hours (Table) 01/25/23 01/26/23 01/26/23 Range/Units 06:49 09:53 09:53 WBC 13.3 H (3.8-10.6) k/uL RBC 3.49 L (4.30-5.90) m/uL Hgb 10.8 L (13.0-17.5) gm/dL Hct 35.1 L (39.0-53.0) % MCV 100.5 H (80.0-100.0) fL MCHC 30.8 L (31.0-37.0) g/dL RDW 19.8 H (11.5-15.5) % Neutrophils # 12.5 H (1.3-7.7) k/uL Lymphocytes # 0.3 L (1.0-4.8) k/uL Sodium 132 L (137-145) mmol/L Chloride 87 L (98-107) mmol/L Carbon Dioxide 36 H (22-30) mmol/L BUN 50 H (9-20) mg/dL Glucose 118 H (74-99) mg/dL Calcium 8.2 L (8.4-10.2) mg/dL Procalcitonin 0.48 H (0.02-0.09) ng/mL Assessment and Plan Assessment: 1. Acute hypoxic respiratory failure related to acute exacerbation systolic CHF. Also history of lung cancer. - Patient is saturating 92% on O2 at 4 L nasal cannula - In view of persistent tachypnea and worsening leukocytosis. We will check a pro-calcitonin and ask for pulmonary consult. Patient says that he is on oxygen at home 4 L but he has no history of COPD. He was ex smoker and he quit in 2017 when he was diagnosed with cancer 2. Acute exacerbation systolic CHF - Patient has been placed on IV Lasix; cardiology recommending to add metoprolol 12.5 mg 3 times a day and start patient on Aldactone 25 mg daily - Echocardiogram with Doppler is ordered - We will monitor strict SADA's, daily weights, renal soft and fluid restricted diet 3. Elevated troponin; troponin is trended and remains flat; likely related to hypoxic respiratory failure 4. Electrolyte imbalance/hypokalemia; supplemented in ED; we will continue to monitor electrolytes and supplement as needed 5. Hyperlipidemia; Lipitor 40 mg by mouth daily at bedtime 6. Hypothyroidism; thyroxine 200 MCG daily 7. History of stage IV lung cancer; patient is currently undergoing chemo therapy; patient will follow-up with oncology as an outpatient 8. Atrial fibrillation; rate controlled on metoprolol 9. Possible postobstructive pneumonia related to his lung cancer in view of inna vated pro-calcitonin and possible infiltrate on the chest x-ray as well as leukocytosis DVT prophylaxis: Eliquis GI prophylaxis Protonix
[2023-01-26] MEDS: ATORVASTATIN 40 MG TAB PO SCH (19:54)
[2023-01-26] MEDS: MELATONIN 5 MG TABLET PO SCH (23:43)
[2023-01-27] MEDS: PIPERACILLIN-TAZOBACTAM 3.375 GM in SODIUM CHLORIDE 0.9% 100 ML IVPB SCH ×3 (02:00→17:05)
[2023-01-27] MEDS: MORPHINE SULFATE 4 MG/ML SYRINGE IVP PRN ×3 (05:58→22:34)
[2023-01-27] MEDS: LEVOTHYROXINE 100 MCG TAB PO SCH (06:00)
--- NOTE | 2023-01-27 07:55 | XR ---
EXAMINATION TYPE: XR chest 1V portable DATE OF EXAM: 01/27/2023 6:43 AM COMPARISON: 01/23/2023 TECHNIQUE: XR chest 1V portable Frontal view of the chest. CLINICAL INDICATION:Male, 58 years old with history of Pneumonia, lung cancer; FINDINGS: Lungs/Pleura: Similar multifocal airspace opacities. No evidence of pneumothorax or pleural effusion. Pulmonary vascularity: Unremarkable. Heart/mediastinum: Cardiomediastinal silhouette is enlarged and stable. Three lead cardiac conduction device overlying the left hemithorax with lead tips projecting over the right ventricle, right atriu m and coronary sinus. Musculoskeletal: No acute osseous pathology. Midline sternotomy wires are noted. Other findings: None Lines/Tubes: [id number] projecting over the right hemithorax with distal tip at the cavoatrial junction. IMPRESSION: 1. Similar multifocal airspace opacities. 2. Similar cardiomegaly.
[2023-01-27] MEDS: FUROSEMIDE 10 MG/ML 4 ML VIAL IV SCH ×3 (09:01→23:36)
[2023-01-27] MEDS: POTASSIUM CHLORIDE ER 20 MEQ TAB.ER PO SCH (09:01)
[2023-01-27] MEDS: ASPIRIN 81 MG PO SCH (09:01)
[2023-01-27] MEDS: METOPROLOL TARTRATE 12.5 MG TAB PO SCH ×3 (09:01→22:34)
[2023-01-27] MEDS: PANTOPRAZOLE 40 MG TABLET PO SCH (09:02)
[2023-01-27] MEDS: APIXABAN 5 MG TAB PO SCH ×2 (09:02→19:43)
[2023-01-27] MEDS: FERROUS SULFATE 325 MG TAB PO SCH (09:02)
[2023-01-27] MEDS: SPIRONOLACTONE 25 MG TAB PO SCH (09:02)
[2023-01-27] MEDS: MAGNESIUM OXIDE 400 MG TAB PO SCH (09:02)
[2023-01-27] MEDS: FOLIC ACID 1 MG TAB PO SCH (09:02)
[2023-01-27] MEDS: IPRATROPIUM 0.5 MG/2.5 ML NEBU INHALATION SCH (09:09)
[2023-01-27] MEDS: IPRATROPIUM-ALBUTEROL 3 ML NEB INHALATION SCH ×3 (12:05→19:32)
--- NOTE | 2023-01-27 12:24 | P.PN ---
Subjective Progress Note Date: 01/27/23 HISTORY OF PRESENT ILLNESS: 01/23/2023 The patient is a 58-year-old male who presented to the hospital with increased shortness of breath and lower extremity edema. He states he's been struggling with edema over the last several months while undergoing chemotherapy for stage IV lung cancer and was recently treated for pneumonia. He states several of his chemotherapy treatments have had to be canceled due to the edema. The patient states he does follow with a Dr. Pacheco at [facility]. DIAGNOSTICS: EKG shows paced rhythm Telemetry shows paced rhythm with alternating bundle branch block, likely underlying atrial fibrillation Chest x-ray shows cardiomegaly with bibasilar infiltrates and small effusions Venous Doppler negative for DVT Vitals: Blood pressure 104/90, pulse 101, respiratory rate 22, SpO2 94% on 4 L nasal cannula, afebrile Lab data: WBC 12.6, hemoglobin 10.5, hematocrit 35.1, platelet 152, sodium 136, potassium 2.8, BUN 31, creatinine 0.75, magnesium 1.8, AST 46, ALT 53, ALP 508, troponin 0.05, 0.05, 0.05, BNP 13,100 01/24/2023 The patient was interviewed and examined resting comfortably in bed. He states his breathing has not improved, however he does feel that his lower extremity edema is improving. No chest pain or chest pressure. No dizziness. 01/25/2023 Patient examined this morning at the bedside. Patient denies chest pain or pressure. He continues to report shortness of breath. He remains on IV Lasix 40 mg every 12 hours. Creatinine is stable at 1.13. He continues to have lower extremity edema although improved from yesterday. Vital signs are stable. Echocardiogram completed revealing ejection fraction 20%, severe pulmonary hypertension, status post mitral valve repair, 3+ tricuspid regurgitation 01/26/2023 Patient examined this morning at the bedside. Patient denies chest pain or pressure. He continues to report shortness of breath which she states is a little bit worse than yesterday. He also reports that his lower extremity edema appears to be worsening today. 01/27/2023 Patient examined this morning at the bedside. Patient continues to report shortness of breath, although improving from yesterday. He remains on IV Lasix 40 mg every 8 hours. He denies chest pain or pressure. PHYSICAL EXAM: VITAL SIGNS: Reviewed. GENERAL: Well-developed in no acute distress. NECK: Supple. No JVD or thyromegaly LUNGS: Respirations even and unlabored. Lungs diminished with bibasilar crackles HEART: Irregular rate and rhythm. S1 and S2 heard. EXTREMITIES: Normal range of motion. No clubbing or cyanosis. Peripheral pulses intact. 2-3+ bilateral lower extremity edema ASSESSMENT: Shortness of breath Exacerbation of systolic heart failure, EF 25% Persistent atrial fibrillation, currently rate controlled History of biventricular AICD implantation Coronary artery disease, details unknown Elevated troponins, flat trend, acute coronary syndrome ruled out Hypokalemia, resolved Anemia History of stage IV lung cancer, currently undergoing chemotherapy Pulmonary hypertension Chronic hypoxic respiratory failure, on home O2 PLAN: Continue current cardiac medications Continue IV Lasix Daily weights, accurate I&O, and monitoring of kidney function Further recommendations pending patient's course Patient to follow-up post discharge with his primary nn[facility] Nurse practitioner note has been reviewed by physician. Signing provider agrees with the documented findings, assessment, and plan of care. Objective - Vital Signs Vital signs: Vital Signs Temp 97.5 F L 01/27/23 08:00 Pulse 71 01/27/23 12:05 Resp 16 01/27/23 11:48 BP 99/70 01/27/23 11:48 Pulse Ox 100 01/27/23 11:48 FiO2 Intake & Output 01/26/23 01/27/23 01/27/23 18:59 06:59 18:59 Intake Total 240 120 180 Output Total 525 200 Balance -285 -80 180 Weight 88.4 kg Intake: Oral 240 120 180 Output: Urine 525 200 Other: Voiding Method Urinal Urinal - Labs CBC & Chem 7: 01/26/23 09:53 01/26/23 09:53 Labs: Microbiology - Last 24 Hours (Table) 01/26/23 09:25 Sputum Culture - Preliminary Sputum
--- NOTE | 2023-01-27 13:16 | P.PN ---
Subjective Progress Note Date: 01/27/23 Principal diagnosis: lung cancer At today's visit patient reports feeling well. He reports improvement in breathing but states he is still experiencing shortness of breath on exertion. Breathing is mildly labored. Records from his primary oncologist were requested and reviewed, discussed this with patient. Patient is requesting to transfer care locally. Will schedule follow-up in clinic upon discharge. Objective - Vital Signs Vital signs: Vital Signs Temp 97.5 F L 01/27/23 08:00 Pulse 70 01/27/23 12:24 Resp 16 01/27/23 11:48 BP 99/70 01/27/23 11:48 Pulse Ox 100 01/27/23 11:48 FiO2 Intake & Output 01/26/23 01/27/23 01/27/23 18:59 06:59 18:59 Intake Total 240 120 180 Output Total 525 200 Balance -285 -80 180 Weight 88.4 kg Intake: Oral 240 120 180 Output: Urine 525 200 Other: Voiding Method Urinal Urinal - Constitutional General appearance: Present: average body habitus, no acute distress - EENT Eyes: Present: anicteric sclerae, EOMI ENT: Present: hearing grossly normal - Respiratory Details: Breathing labored - Cardiovascular Details: skin warm and dry - Integumentary Integumentary: Absent: cyanotic, rash - Neurologic Neurologic Comment(s): grossly intact - Musculoskeletal Musculoskeletal: Present: strength equal bilaterally - Psychiatric Psychiatric: Present: A&O x's 3, appropriate affect, intact judgment & insight - Labs CBC & Chem 7: 01/26/23 09:53 01/26/23 09:53 Labs: Microbiology - Last 24 Hours (Table) 01/26/23 09:25 Sputum Culture - Preliminary Sputum Assessment and Plan (1) Acute pulmonary edema Current Visit: Yes Status: Acute Priority: High Code(s): J81.0 - ACUTE PULMONARY EDEMA SNOMED Code(s): 30356835 (2) Lung cancer Current Visit: Yes Status: Acute Priority: High Code(s): C34.90 - MALIGNANT NEOPLASM OF UNSP PART OF UNSP BRONCHUS OR LUNG SNOMED Code(s): 023199654 Plan: Lung cancer: -He did not recall certain aspects of treatment received. It appears he has had some response, despite multiple treatment delays. Tolerance of treatment has been good. -Treatment on hold currently -Records from his primary oncologist were requested and reviewed, discussed this with patient. Patient is currently on carbo/alimta/keytruda and has received 5 cycles, completing last cycle on 12/21/22 -Patient is requesting to transfer care locally. Instructed pt to request primary oncologist to transfer care/records to our office. Will schedule follow- up in clinic upon discharge. - Monitor counts while inpt. Counts are adequate currently Acute pulmonary edema: -From CHF due to systolic dysfunction. This is unrelated to his cancer history, but has impaired treatment. Defer to Cardiology and admitting service for ongoing treatment
--- NOTE | 2023-01-27 15:27 | P.PN ---
Subjective Progress Note Date: 01/27/23 This is a 58-year-old white male with history of stage IV lung cancer, this was diagnosed about 7-8 months ago. For his lung cancer, the patient is being followed by oncology at [facility]. And he did receive chemotherapy and immunotherapy. Patient is also known to have history of systo lic congestive heart failure, ejection fraction of 20%, patient presented to the hospital on 01/23/2023 with mostly symptoms of shortness of breath and significant swelling in lower extremities. Supposedly the patient was treated recently in an outside institution for pneumonia, although looking at his chest x-ray from this admission, it seems to be mostly consistent with congestive heart failure, nonetheless the patient did have leukocytosis with WBC count of 16,000, he had elevated troponin level of 0.059, and a BNP level of 15,100. Screening for Covid19 was negative. Echocardiogram on this admission showed severely reduced global LV function with ejection fraction of 20% he was also found to have 3+ tricuspid regurgitation and severe pulmonary hypertension. Considering his shortness of breath, this consult was initiated. Patient denies any fever or chills, he had intermittent cough, shortness of breath, no chest pain, his main concern seems to be related to significant swelling in his lower extremities bilaterally. Patient is now on Lasix at 40 mg IV push twice a day, and his shortness of breath as well as his bipedal edema seems to be responding well to treatment. Patient is also on Aldactone 25 mg daily. Reevaluated today on 01/26/2023, patient remains on suction remains on diuretics, remains on bronchodilators, he is also on beta blockers, improving, less shortness of breath, less swelling in the lower extremities noted. Leukocytosis is improving hemoglobin is 10.8. Electrolytes are normal except for bicarb of 36. BUN of 50 creatinine 0.94. Pro-calcitonin level 0.48. Patient is on Zosyn. The patient is seen today 01/27/2023 in follow-up on the selective care unit. He is currently sitting up at the bedside. Awake and alert in no acute distress. He is maintaining O2 sat saturations in the 90s on 6 L high flow nasal cannula. Chest x-ray is showing some improvement with continued multifocal airspace opacities and cardiomegaly. Left lower extremity edema however there is weeping of serous fluid. His pro calcitonin was 0.48. He is continued on Zosyn. He is continued on Lasix 40 mg IV every 8 hours. He remains in a negative balance. Sputum culture pending. Labs today. Anticoagulated with Eliquis. Objective - Vital Signs Vital signs: Vital Signs Temp 97.5 F L 01/27/23 08:00 Pulse 70 01/27/23 12:24 Resp 16 01/27/23 11:48 BP 99/70 01/27/23 11:48 Pulse Ox 100 01/27/23 11:48 FiO2 Intake & Output 01/26/23 01/27/23 01/27/23 18:59 06:59 18:59 Intake Total 240 120 180 Output Total 525 200 Balance -285 -80 180 Weight 88.4 kg Intake: Oral 240 120 180 Output: Urine 525 200 Other: Voiding Method Urinal Urinal - Exam GENERAL EXAM: Alert, pleasant 58-year-old male, on 6 L high flow nasal cannula,, comfortable in no apparent distress. HEAD: Normocephalic. EYES: Normal reaction of pupils, equal size. NOSE: Clear with pink turbinates. THROAT: No erythema or exudates. NECK: No masses, positive JVD. CHEST: No chest wall deformity. LUNGS: Equal air entry with bilateral scattered rhonchi, diffuse crackles in the bases. CVS: S1 and S2 normal with an audible murmur, regular rhythm. ABDOMEN: No hepatosplenomegaly, normal bowel sounds, no guarding or rigidity. SPINE: No scoliosis or deformity SKIN: No rashes CENTRAL NERVOUS SYSTEM: No focal deficits, tone is normal in all 4 extremities. EXTREMITIES: There is 2+ peripheral edema. No clubbing, no cyanosis. Luz Marina pheral pulses are intact. - Labs CBC & Chem 7: 01/26/23 09:53 01/26/23 09:53 Labs: Microbiology - Last 24 Hours (Table) 01/26/23 09:25 Sputum Culture - Preliminary Sputum Assessment and Plan Assessment: Acute and chronic hypoxemic respiratory failure secondary to an acute exace rbation of chronic systolic congestive heart failure in a patient with a known ejection fraction of 20%. Acute on chronic hypoxemic respiratory failure secondary to suspected postobstructive pneumonia with an elevated pro-calcitonin currently on Zosyn History of underlying bronchogenic carcinoma, stage IV. Requiring home oxygen at 4 L History of chronic obstructive pulmonary disease Former smoker Severe pulmonary hypertension and cor pulmonale Chronic tricuspid regurgitation secondary to pulmonary hypertension Permanent pacemaker implantation Plan: The patient was seen and evaluated Chest x-ray and medications reviewed Continue Zosyn and bronchodilators Titrate the FiO2 as tolerated Continue IV diuretics Anticoagulated with Eliquis We will continue to follow and make further recommendations based on his clinical status I have personally seen and examined the patient, performed the documentation and the assessment and plan as written. Number of minutes spent on the visit: 10.
--- NOTE | 2023-01-27 15:28 | P.PN ---
Subjective Progress Note Date: 01/27/23 Principal diagnosis: Acute hypoxic respiratory failure, multifactorial mostly related to acute systolic congestive heart failure, ejection fraction of 20% This is a 58-year-old white male with history of stage IV lung cancer, this was diagnosed about 7-8 months ago. For his lung cancer, the patient is being followed by oncology at [facility]. And he did receive chemotherapy and immunotherapy. Patient is also known to have history of systolic congestive heart failure, ejection fraction of 20%, patient presented to the hospital on 01/23/2023 with mostly symptoms of shortness of breath and significant swelling in lower extremities. Supposedly the patient was treated recently in an outside institution for pneumonia, although looking at his chest x-ray from this admission, it seems to be mostly consistent with congestive heart failure, nonetheless the patient did have leukocytosis with WBC count of 16,000, he had elevated troponin level of 0.059, and a BNP level of 15,100. Screening for Covid19 was negative. Echocardiogram on this admission showed severely reduced global LV function with ejection fraction of 20% he was also found to have 3+ tricuspid regurgitation and severe pulmonary hypertension. Considering his shortness of breath, this consult was initiated. Patient denies any fever or chills, he had intermittent cough, shortness of breath, no chest pain, his main concern seems to be related to significant swelling in his lower extremities bilaterally. Patient is now on Lasix at 40 mg IV push twice a day, and his shortness of breath as well as his bipedal edema seems to be responding well to treatment. Patient is also on Aldactone 25 mg daily. Reevaluated today on 01/26/2023, patient remains on suction remains on diuretics, remains on bronchodilators, he is also on beta blockers, improving, less shortness of breath, less swelling in the lower extremities noted. Leukocytosis is improving hemoglobin is 10.8. Electrolytes are normal except for bicarb of 36. BUN of 50 creatinine 0.94. Pro-calcitonin level 0.48. Patient is on Zosyn. Reevaluated today on 01/27/2023, patient is feeling slightly better, continues to have shortness of breath, intermittent cough, wheezing, and continues to have significant swelling in the lower extremities in spite of aggressive diuresis. Chest x-ray is showing improvement in his interstitial edema. WBC count is 13.3 hemoglobin is 10.8 electrolytes are normal BUN is 50 creatinine 0.94. Objective - Vital Signs Vital signs: Vital Signs Temp 97.5 F L 01/27/23 08:00 Pulse 70 01/27/23 12:24 Resp 16 01/27/23 11:48 BP 99/70 01/27/23 11:48 Pulse Ox 100 01/27/23 11:48 FiO2 Intake & Output 01/26/23 01/27/23 01/27/23 18:59 06:59 18:59 Intake Total 240 120 180 Output Total 525 200 Balance -285 -80 180 Weight 88.4 kg Intake: Oral 240 120 180 Output: Urine 525 200 Other: Voiding Method Urinal Urinal - Exam Physical Exam: Revealed a 58-year-old white male in no distress on 5 L nasal cannula Head: Atraumatic normocephalic. HEENT:[Neck is supple.] [No neck masses.] [No thyromegaly.] Positive JVD. Chest: [Crackles and rhonchi noted bilaterally. Cardiac Exam: [Normal S1 and S2, no S3 gallop, 2/6 systolic murmur thought the precordium. Abdomen: [Soft, nontender, no megaly, no rebound, no guarding, normal bowel sounds.] Extremities: [No clubbing, 3+ bipedal edema no cyanosis. Some weeping noted in the left lower extremity in the calf region. Neurological Exam: Alert and oriented 3. [No focal neurologic deficit.] Psychiatric: Normal mood affect and normal mental status examination. Skin: No rashes. - Labs CBC & Chem 7: 01/26/23 09:53 01/26/23 09:53 Labs: Microbiology - Last 24 Hours (Table) 01/26/23 09:25 Sputum Culture - Preliminary Sputum Assessment and Plan Assessment: Impression: Acute hypoxic episode of failure Acute systolic congestive heart failure/pulmonary edema, ejection fraction of 20%, cannot rule out underlying pneumonia/postobstructive pneumonia, considering pro calcitonin level is elevated will empirically continue Zosyn. History of underlying COPD History of underlying bronchogenic carcinoma stage IV Severe pulmonary hypertension and cor pulmonale Chronic tricuspid regurgitation and pulmonary hypertension Recommendation: Continue diuretics including Aldactone and Lasix Continue Zosyn mostly because pro calcitonin level is elevated Continue bronchodilators Continue GI and DVT prophylaxis Continue oxygen and titrate accordingly Prognosis remains relatively poor and guarded Not quite ready for discharge planning We will continue to follow Time with Patient: Less than 30
--- NOTE | 2023-01-27 16:42 | CDI ---
Documentation Clarification Form Date: 01/27/2023 4:41:00 PM From: Ade Phan Phone: [phone] Admit Date: 01/23/2023 10:43:00 AM Patient Name: Charli Rod Visit Number: [id number] Discharge Date: ATTENTION: The Clinical Documentation Specialists (CDI) and [facility] Coding Staff appreciate your assistance in clarifying documentation. Please respond to the clarification below the line at the bottom and electronically sign. The CDI & [facility] Coding staff will review the response and follow-up if needed. Please note: Queries are made part of the Legal Health Record. If you have any questions, please contact the author of this message via ITS. Dr. Black Alcaraz The patient has SIRS criteria with a possible infection noted in the chart. Based on this information and the findings below, is there an additional diagnosis that is clinically appropriate for this patient? History/Risk Factors: "58-year-old male who presented to the hospital with increased shortness of breath and lower extremity edema. He states he's been struggling with edema over the last several months while undergoing chemotherapy for stage IV lung cancer and was recently treated for pneumonia." - Per Admission H&P on 01/23 Clinical Indicators: "cannot rule out underlying pneumonia/post obstructive pneumonia, considering pro calcitonin level is elevated" - Per Progress Note on 01/27 WBC 01/23 - 12.6 01/25 - 16.4 01/26 - 13.3 Lactic acid: 01/23 - 1.6 Procalcitonin: 01/25 - 0.48 Blood cultures: not drawn. Vitals signs: 01/23 08:08 - Temp. 98.6, HR 100, RR 28, BP 105/50, O2 90% on 2L NC 01/23 18:00 - HR 102, RR 26, BP 107/94, O2 92% 01/24 08:10 - Temp. 97.5, HR 98, RR 16, BP 114/64, O2 93% on 4L 01/25 08:10 - Temp. 97.9, HR 92, RR 22, BP 116/76, O2 96% on 4L 01/26 10:59 - Temp. 97.6, HR 73, RR 28, BP 108/68, O2 91% on 5L 01/27 04:00 - Temp. 97.7, HR 81, RR 20, BP 101/62, O2 90% no 5L Treatment: Per Progress Note on 01/27 - continue Zosyn - continue bronchodilators - continue oxygen and titrate accordingly Is there an additional diagnosis that is clinically appropriate for this patient? [ ] Sepsis, present on admission [ ] Sepsis ruled out [ ] Severe Sepsis with organ failure [ ] SIRS, without underlying infectious process [x ] Other, please specify SIRS with underlying infectious process/pneumonia [ ] Unable to determine SIRS Criteria: 2 or more of the following may indicate SIRS Temperature < 96.8F (36C) or > 101.0F (38.3C) Heart Rate > 90 bpm Respiratory Rate > 20 breaths/min or PaCO2 < 32 mmHg White Blood Cell Count > 12,000 or < 4,000 cells/mm3 or > 10% bands MTDD
[2023-01-27] MEDS: ATORVASTATIN 40 MG TAB PO SCH (19:43)
[2023-01-27] MEDS: ALPRAZolam 1 MG TAB PO PRN (21:30)
[2023-01-27] MEDS: MELATONIN 5 MG TABLET PO SCH (22:35)
[2023-01-28] MEDS: PIPERACILLIN-TAZOBACTAM 3.375 GM in SODIUM CHLORIDE 0.9% 100 ML IVPB SCH ×3 (02:00→16:54)
[2023-01-28] MEDS: MORPHINE SULFATE 4 MG/ML SYRINGE IVP PRN ×4 (06:25→22:52)
[2023-01-28] MEDS: LEVOTHYROXINE 100 MCG TAB PO SCH (06:26)
[2023-01-28] MEDS: IPRATROPIUM-ALBUTEROL 3 ML NEB INHALATION SCH ×4 (07:49→21:33)
[2023-01-28 07:54] LABS: Anisocytosis Slight; Basophils % (A) 0 %; Eosinophils % (A) 0 %; HCT 36.4 % (39.0-53.0); Hypochromasia Marked; Lymphocytes # (A) 0.2 k/uL (1.0-4.8); Lymphocytes % (A) 2 %; MCH 30.6 pg (25.0-35.0); MCHC 30.1 g/dL (31.0-37.0); MCV 101.6 fL (80.0-100.0); Macrocytosis Moderate; Mean Platelet Volume 8.4; Monocytes # (A) 0.3 k/uL (0-1.0); Monocytes % (A) 3 %; Neutrophils # (A) 9.9 k/uL (1.3-7.7); Neutrophils % (A) 94 %; Platelet Count 131 k/uL (150-450); RBC 3.59 m/uL (4.30-5.90); RDW 19.8 % (11.5-15.5); WBC 10.5 k/uL (3.8-10.6)
[2023-01-28 08:14] LABS: Calcium 8.1 mg/dL (8.4-10.2); Potassium 4.2 mmol/L (3.5-5.1)
[2023-01-28] MEDS: MAGNESIUM OXIDE 400 MG TAB PO SCH (08:38)
[2023-01-28] MEDS: APIXABAN 5 MG TAB PO SCH ×2 (08:38→20:40)
[2023-01-28] MEDS: FUROSEMIDE 10 MG/ML 4 ML VIAL IV SCH ×2 (08:38→16:54)
[2023-01-28] MEDS: FERROUS SULFATE 325 MG TAB PO SCH (08:38)
[2023-01-28] MEDS: PANTOPRAZOLE 40 MG TABLET PO SCH (08:38)
[2023-01-28] MEDS: POTASSIUM CHLORIDE ER 20 MEQ TAB.ER PO SCH (08:38)
[2023-01-28] MEDS: FOLIC ACID 1 MG TAB PO SCH (08:38)
[2023-01-28] MEDS: SPIRONOLACTONE 25 MG TAB PO SCH (08:38)
[2023-01-28] MEDS: METOPROLOL TARTRATE 12.5 MG TAB PO SCH ×3 (08:38→20:40)
[2023-01-28] MEDS: ASPIRIN 81 MG PO SCH (08:38)
[2023-01-28] MEDS ORDERED: SPIRONOLACTONE 25 MG TAB PO STA (10:10)
--- NOTE | 2023-01-28 10:43 | P.PN ---
Subjective Progress Note Date: 01/27/23 58-year-old male who presented to the hospital with increased shortness of breath and lower extremity edema. He states he's been struggling with edema over the last several months while undergoing chemotherapy for stage IV lung cancer and was recently treated for pneumonia. He states several of his chem otherapy treatments have had to be canceled due to the edema. The patient states he does follow with a Dr. Pacheco at [facility]. Workup treated in ED reveals EKG shows paced rhythm Telemetry shows paced rhythm with alternating bundle branch block, likely underlying atrial fibrillation Chest x-ray shows cardiomegaly with bibasilar infiltrates and small effusions Venous Doppler negative for DVT Lab data: WBC 12.6, hemoglobin 10.5, hematocrit 35.1, platelet 152, sodium 136, potassium 2.8, BUN 31, creatinine 0.75, magnesium 1.8, AST 46, ALT 53, ALP 508, troponin 0.05, 0.05, 0.05, BNP 13,100 24 hour interval change 01/24/2023 The patient is seen and examined resting comfortably in bed. He states his breathing has not improved, however he does feel that his lower extremity edema is improving. No chest pain or chest pressure. No dizziness. Recent echocardiogram shows reduction in LV function to 20% with severe global hypokinesis, increased left atrial volume, 3+ tricuspid regurgitation, RV enlargement with severe pulmonary hypertension. RVSP 63 mmHg. Device interrogation also reveals new onset of atrial fibrillation in the month of December. This corresponds with his increase in edema and worsening shortness of breath. Optive readings indicate fluid overload. -- cardiology recommending starting anticoagulation with novel agent. Reduce furosemide to twice a day for slow diuresis to avoid hypotension Maximize cardiomyopathy medications as tolerated 01/25/2023 This is a pleasant 58 years old male with past medical history of heart failure and ejection fraction of 20-25% presents with worsening dyspnea and bilateral leg edema suspicious for acute CHF exacerbation and currently he is on IV Lasix 40 mg twice daily, he is awake and alert but still have tachypnea and his breathing fast and short while at rest, is also complained from exertional dyspnea with coughing and brown phlegm but no chest pain. He uses for liters of oxygen at home. He has right lung cancer on chemotherapy and Dr. Yadav follow with him closely. We ordered production consult on in and pulmonary consults. 01/26/2023 Patient thinks he is not improving today and actually he is worth, his more short of breath and more leg swelling. elevated pro-calcitonin and possible infiltrate on the chest x-ray as well as leukocytosis therefore we started the patient on Zosyn. Sputum culture sent and result is pending. Also Lasix dose was increased to 40 mg twice a day in to 3 times a day. While he remains on Eliquis 5 mg. His oxygen saturation today is 90% on 5 L which is slightly worse compared to yesterday. 01/27/2023 Patient is currently lying in bed. Awake alert and oriented. Requiring oxygen at 6 L high flow nasal cannula. No complaints of chest pain. Still having exertional dyspnea and shortness of breath. No fever no chills. No cough or sputum production. Patient is being continued on IV Lasix every 8 hourly. Patient is also on Aldactone 25 mg daily. Patient is being continued on antibiotics in the form of Zosyn. Pro-calcitonin level is elevated at 0.48. Chest x-ray showed similar multifocal airspace opacities. No evidence of pneumothorax or pleural effusion. Laboratory data WBC was trending down he had follow-up repeat CBC and BMP tomorrow. Patient is on anticoagulation with eliquis. Current medications reviewed. Objective - Vital Signs Vital signs: Vital Signs Temp 97.5 F L 01/27/23 08:00 Pulse 84 01/27/23 09:21 Resp 16 01/27/23 08:00 BP 103/60 01/27/23 08:00 Pulse Ox 93 L 01/27/23 09:07 FiO2 Intake & Output 01/26/23 01/27/23 01/27/23 18:59 06:59 18:59 Intake Total 240 120 180 Output Total 525 200 Balance -285 -80 180 Weight 88.4 kg Intake: Oral 240 120 180 Output: Urine 525 200 Other: Voiding Method Urinal - Exam - Exam GENERAL: The patient is alert and oriented x3, not in any acute distress. Well developed, well nourished. HEENT: Pupils are round and equally reacting to light. EOMI. No scleral icterus. No conjunctival pallor. Normocephalic, atraumatic. No pharyngeal erythema. No thyromegaly. CARDIOVASCULAR: S1 and S2 present. No murmurs, rubs, or gallops. -PULMONARY: Chest is clear to auscultation, bilateral harsh breath sounds with prolonged expiration, no wheezing or crackles. ABDOMEN: Soft, nontender, nondistended, normoactive bowel sounds. No palpable organomegaly. MUSCULOSKELETAL: No joint swelling or deformity. -EXTREMITIES: No cyanosis, clubbing, , 3+ bilateral pitting leg edema. NEUROLOGICAL: Gross neurological examination did not reveal any focal deficits. SKIN: No rashes. no petechiae. - Labs CBC & Chem 7: 01/28/23 07:21 01/28/23 07:21 Labs: Abnormal Lab Results - Last 24 Hours (Table) 01/26/23 01/26/23 Range/Units 09:53 09:53 WBC 13.3 H (3.8-10.6) k/uL RBC 3.49 L (4.30-5.90) m/uL Hgb 10.8 L (13.0-17.5) gm/dL Hct 35.1 L (39.0-53.0) % MCV 100.5 H (80.0-100.0) fL MCHC 30.8 L (31.0-37.0) g/dL RDW 19.8 H (11.5-15.5) % Neutrophils # 12.5 H (1.3-7.7) k/uL Lymphocytes # 0.3 L (1.0-4.8) k/uL Sodium 132 L (137-145) mmol/L Chloride 87 L (98-107) mmol/L Carbon Dioxide 36 H (22-30) mmol/L BUN 50 H (9-20) mg/dL Glucose 118 H (74-99) mg/dL Calcium 8.2 L (8.4-10.2) mg/dL Microbiology - Last 24 Hours (Table) 01/26/23 09:25 Sputum Culture - Preliminary Sputum Assessment and Plan Assessment: 1. Acute hypoxic respiratory failure related to acute exacerbation systolic CHF. Possible postobstructive pneumonia. Elevated pro-Level. Continue with Zosyn. History of Bronchogenic Carcinoma Stage IV. On Home Oxygen at [address] Nasal Cannula. - Patient is saturating 92% on O2 at 6 L nasal cannula 2. Acute exacerbation systolic CHF Severe Pulmonary hypertension and cor pulmonale. Also has chronic tricuspid regurgitation. - Patient has been placed on IV Lasix; cardiology recommending to add metoprolol 12.5 mg 3 times a day and start patient on Aldactone 25 mg daily - Echocardiogram with Doppler is ordered - We will monitor strict SADA's, daily weights, renal soft and fluid restricted diet 3. Elevated troponin; troponin is trended and remains flat; likely related to hypoxic respiratory failure 4. Electrolyte imbalance/hypokalemia; supplemented in ED; we will continue to monitor electrolytes and supplement as needed 5. Hyperlipidemia; Lipitor 40 mg by mouth daily at bedtime 6. Hypothyroidism; thyroxine 200 MCG daily 7. History of stage IV lung cancer; patient is currently undergoing chemother apy; patient will follow-up with oncology as an outpatient 8. Atrial fibrillation; rate controlled on metoprolol. On anticoagulation. DVT prophylaxis: Eliquis GI prophylaxis Protonix Time with Patient: Greater than 30
[2023-01-28] MEDS: methylPREDNISolone SOD SUCCI 125 MG/2 ML VIAL IV SCH ×3 (12:12→23:10)
--- NOTE | 2023-01-28 12:23 | P.PN ---
Subjective HISTORY OF PRESENT ILLNESS: 01/23/2023 The patient is a 58-year-old male who presented to the hospital with increased shortness of breath and lower extremity edema. He states he's been struggling with edema over the last several months while undergoing chemotherapy for stage IV lung cancer and was recently treated for pneumonia. He states several of his chemotherapy treatments have had to be canceled due to the edema. The patient states he does follow with a Dr. Pacheco at [facility]. DIAGNOSTICS: EKG shows paced rhythm Telemetry shows paced rhythm with alternating bundle branch block, likely underlying atrial fibrillation Chest x-ray shows cardiomegaly with bibasilar infiltrates and small effusions Venous Doppler negative for DVT Vitals: Blood pressure 104/90, pulse 101, respiratory rate 22, SpO2 94% on 4 L nasal cannula, afebrile Lab data: WBC 12.6, hemoglobin 10.5, hematocrit 35.1, platelet 152, sodium 136, potassium 2.8, BUN 31, creatinine 0.75, magnesium 1.8, AST 46, ALT 53, ALP 508, troponin 0.05, 0.05, 0.05, BNP 13,100 01/24/2023 The patient was interviewed and examined resting comfortably in bed. He states his breathing has not improved, however he does feel that his lower extremity ed jose francisco is improving. No chest pain or chest pressure. No dizziness. 01/25/2023 Patient examined this morning at the bedside. Patient denies chest pain or pressure. He continues to report shortness of breath. He remains on IV Lasix 40 mg every 12 hours. Creatinine is stable at 1.13. He continues to have lower extremity edema although improved from yesterday. Vital signs are stable. Echocardiogram completed revealing ejection fraction 20%, severe pulmonary hypertension, status post mitral valve repair, 3+ tricuspid regurgitation 01/26/2023 Patient examined this morning at the bedside. Patient denies chest pain or pressure. He continues to report shortness of breath which she states is a little bit worse than yesterday. He also reports that his lower extremity edema appears to be worsening today. 01/27/2023 Patient examined this morning at the bedside. Patient continues to report shortness of breath, although improving from yesterday. He remains on IV Lasix 40 mg every 8 hours. He denies chest pain or pressure. 01/28/2023 Patient examined this morning at the bedside. Patient denies chest pain or pressure. Patient continues to report shortness of breath and states it feels unchanged from yesterday. He continues to have lower extremity edema. He r emains on Lasix 40 mg every 8 hours. Kidney function remained stable with a creatinine of 1.2 to today. PHYSICAL EXAM: VITAL SIGNS: Reviewed. GENERAL: Well-developed in no acute distress. NECK: Supple. No JVD or thyromegaly LUNGS: Respirations even and unlabored. Lungs diminished with bibasilar crackles HEART: Irregular rate and rhythm. S1 and S2 heard. EXTREMITIES: Normal range of motion. No clubbing or cyanosis. Peripheral pulses intact. 2-3+ bilateral lower extremity edema ASSESSMENT: Shortness of breath Exacerbation of systolic heart failure, EF 25% Persistent atrial fibrillation, currently rate controlled History of biventricular AICD implantation Coronary artery disease, details unknown Elevated troponins, flat trend, acute coronary syndrome ruled out Hypokalemia, resolved Anemia History of stage IV lung cancer, currently undergoing chemotherapy Pulmonary hypertension Chronic hypoxic respiratory failure, on home O2 PLAN: Continue current cardiac medications Continue IV Lasix 40 mg every 8 hours Increase Aldactone to 50 mg daily Daily weights, accurate I&O, and monitoring of kidney function Further recommendations pending patient's course Patient to follow-up post 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 Signing provider agrees with the documented findings, assessment, and plan of care. Objective - Vital Signs Vital signs: Vital Signs Temp 97.7 F 01/28/23 04:00 Pulse 72 01/28/23 11:29 Resp 30 H 01/28/23 08:00 BP 96/68 01/28/23 08:00 Pulse Ox 92 L 01/28/23 08:00 FiO2 Intake & Output 01/27/23 01/28/23 01/28/23 18:59 06:59 18:59 Intake Total 180 180 Output Total 250 200 Balance -70 -200 180 Weight 88.9 kg Intake: Oral 180 180 Output: Urine 250 200 Other: Voiding Method Urinal Urinal Urinal # Voids 1 - Labs CBC & Chem 7: 01/28/23 07:21 01/28/23 07:21 Labs: Abnormal Lab Results - Last 24 Hours (Table) 01/28/23 01/28/23 Range/Units 07:21 07:21 RBC 3.59 L (4.30-5.90) m/uL Hgb 11.0 L (13.0-17.5) gm/dL Hct 36.4 L (39.0-53.0) % MCV 101.6 H (80.0-100.0) fL MCHC 30.1 L (31.0-37.0) g/dL RDW 19.8 H (11.5-15.5) % Plt Count 131 L (150-450) k/uL Neutrophils # 9.9 H (1.3-7.7) k/uL Lymphocytes # 0.2 L (1.0-4.8) k/uL Sodium 129 L (137-145) mmol/L Chloride 83 L (98-107) mmol/L Carbon Dioxide 31 H (22-30) mmol/L BUN 58 H (9-20) mg/dL Calcium 8.1 L (8.4-10.2) mg/dL Microbiology - Last 24 Hours (Table) 01/26/23 09:25 Gram Stain - Final Sputum Sputum Culture - Preliminary Pseudomonas aeruginosa
--- NOTE | 2023-01-28 13:28 | P.PN ---
Subjective Progress Note Date: 01/28/23 Principal diagnosis: Acute hypoxic respiratory failure, multifactorial mostly related to acute systolic congestive heart failure, ejection fraction of 20% This is a 58-year-old white male with history of stage IV lung cancer, this was diagnosed about 7-8 months ago. For his lung cancer, the patient is being followed by oncology at [facility]. And he did receive chemotherapy and immunotherapy. Patient is also known to have history of systolic congestive heart failure, ejection fraction of 20%, patient presented to the hospital on 01/23/2023 with mostly symptoms of shortness of breath and significant swelling in lower extremities. Supposedly the patient was treated recently in an outside institution for pneumonia, although looking at his chest x-ray from this admission, it seems to be mostly consistent with congestive heart failure, nonetheless the patient did have leukocytosis with WBC count of 16,000, he had elevated troponin level of 0.059, and a BNP level of 15,100. Screening for Covid19 was negative. Echocardiogram on this admission showed severely reduced global LV function with ejection fraction of 20% he was also found to have 3+ tricuspid regurgitation and severe pulmonary hypertension. Considering his shortness of breath, this consult was initiated. Patient denies any fever or chills, he had intermittent cough, shortness of breath, no chest pain, his main concern seems to be related to significant swelling in his lower extremities bilaterally. Patient is now on Lasix at 40 mg IV push twice a day, and his shortness of breath as well as his bipedal edema seems to be responding well to treatment. Patient is also on Aldactone 25 mg daily. Reevaluated today on 01/26/2023, patient remains on suction remains on diuretics, remains on bronchodilators, he is also on beta blockers, improving, less shortness of breath, less swelling in the lower extremities noted. Leukocytosis is improving hemoglobin is 10.8. Electrolytes are normal except for bicarb of 36. BUN of 50 creatinine 0.94. Pro-calcitonin level 0.48. Patient is on Zosyn. Reevaluated today on 01/27/2023, patient is feeling slightly better, continues to have shortness of breath, intermittent cough, wheezing, and continues to have significant swelling in the lower extremities in spite of aggressive diuresis. Chest x-ray is showing improvement in his interstitial edema. WBC count is 13.3 hemoglobin is 10.8 electrolytes are normal BUN is 50 creatinine 0.94. Reevaluated today on 01/28/2023, patient is not doing well today, he is having more trouble with his shortness of breath, intermittent cough, wheezing, and not feeling good. Remains on 5 L nasal cannula, O2 sats is at 93%. WBC count today is 10.5 hemoglobin is 11 electrolytes showed low sodium of 129 BUN is 58 creatinine 1.22, pro-calcitonin level 0.48.. Sputum is positive for pseudomonas aeruginosa, obviously the patient has underlying pseudomonal pneumonia, patient remains on Zosyn for his pseudomonal pneumonia. Today were adding more bronchodilators and steroids because of symptoms of COPD exacerbation and worsening shortness of breath Objective - Vital Signs Vital signs: Vital Signs Temp 97.7 F 01/28/23 04:00 Pulse 74 01/28/23 12:00 Resp 16 01/28/23 12:00 BP 96/58 01/28/23 12:00 Pulse Ox 93 L 01/28/23 12:00 FiO2 Intake & Output 01/27/23 01/28/23 01/28/23 18:59 06:59 18:59 Intake Total 180 180 Output Total 250 200 Balance -70 -200 180 Weight 88.9 kg Intake: Oral 180 180 Output: Urine 250 200 Other: Voiding Method Urinal Urinal Urinal # Voids 1 - Exam Physical Exam: Revealed a 58-year-old white male in no distress on 5 L nasal cannula Head: Atraumatic normocephalic. HEENT:[Neck is supple.] [No neck masses.] [No thyromegaly.] Positive JVD. Chest: [Crackles and rhonchi noted bilaterally. Wheezing on forced expiratory maneuver noted bilaterally. Cardiac Exam: [Normal S1 and S2, no S3 gallop, 2/6 systolic murmur thought the precordium. Abdomen: [Soft, nontender, no megaly, no rebound, no guarding, normal bowel sounds.] Extremities: [No clubbing, 3+ bipedal edema no cyanosis. Some weeping noted in the left lower extremity in the calf region. Neurological Exam: Alert and oriented 3. [No focal neurologic deficit.] Psychiatric: Normal mood affect and normal mental status examination. Skin: No rashes. - Labs CBC & Chem 7: 01/28/23 07:21 01/28/23 07:21 Labs: Abnormal Lab Results - Last 24 Hours (Table) 01/28/23 01/28/23 Range/Units 07:21 07:21 RBC 3.59 L (4.30-5.90) m/uL Hgb 11.0 L (13.0-17.5) gm/dL Hct 36.4 L (39.0-53.0) % MCV 101.6 H (80.0-100.0) fL MCHC 30.1 L (31.0-37.0) g/dL RDW 19.8 H (11.5-15.5) % Plt Count 131 L (150-450) k/uL Neutrophils # 9.9 H (1.3-7.7) k/uL Lymphocytes # 0.2 L (1.0-4.8) k/uL Sodium 129 L (137-145) mmol/L Chloride 83 L (98-107) mmol/L Carbon Dioxide 31 H (22-30) mmol/L BUN 58 H (9-20) mg/dL Calcium 8.1 L (8.4-10.2) mg/dL Microbiology - Last 24 Hours (Table) 01/26/23 09:25 Gram Stain - Final Sputum Sputum Culture - Preliminary Pseudomonas aeruginosa Assessment and Plan Assessment: Impression: Acute hypoxic episode of failure Acute systolic congestive heart failure/pulmonary edema, ejection fraction of 20%, cannot rule out underlying pneumonia/postobstructive pneumonia, considering pro calcitonin level is elevated will empirically continue Zosyn. History of underlying COPD History of underlying bronchogenic carcinoma stage IV Severe pulmonary hypertension and cor pulmonale Chronic tricuspid regurgitation and pulmonary hypertension Acute pseudomonal aeruginosa pneumonia Patient has SIRS with underlying infection/pneumonia as noted above. Recommendation: Start patient on steroids and optimize his bronchodilators. Continue Zosyn, his Pseudomonas is sensitive to Zosyn which she has been on all along. Continue diuretics including Aldactone and Lasix Continue bronchodilators Continue GI and DVT prophylaxis Continue oxygen and titrate accordingly Prognosis remains relatively poor and guarded Not quite ready for discharge planning Discussed CODE STATUS with the patient and he clearly wishes DO NOT RESUSCITATE CODE STATUS. We will continue to follow Time with Patient: Less than 30
[2023-01-28] MEDS: ATORVASTATIN 40 MG TAB PO SCH (20:40)
[2023-01-28] MEDS: MELATONIN 5 MG TABLET PO SCH (20:40)
[2023-01-28] MEDS: SYMBICORT 160-4.5 MCG INHALER INHALATION SCH (21:33)
[2023-01-29] MEDS: ALPRAZolam 1 MG TAB PO PRN (01:13)
[2023-01-29] MEDS: FUROSEMIDE 10 MG/ML 4 ML VIAL IV SCH ×3 (01:13→12:03)
[2023-01-29] MEDS: PIPERACILLIN-TAZOBACTAM 3.375 GM in SODIUM CHLORIDE 0.9% 100 ML IVPB SCH ×2 (03:26→10:01)
[2023-01-29] MEDS: methylPREDNISolone SOD SUCCI 125 MG/2 ML VIAL IV SCH ×2 (05:03→11:39)
[2023-01-29] MEDS: MORPHINE SULFATE 4 MG/ML SYRINGE IVP PRN ×2 (05:03→11:37)
[2023-01-29] MEDS: LEVOTHYROXINE 100 MCG TAB PO SCH (06:45)
[2023-01-29] MEDS: IPRATROPIUM-ALBUTEROL 3 ML NEB INHALATION SCH ×3 (07:36→16:15)
[2023-01-29] MEDS: SYMBICORT 160-4.5 MCG INHALER INHALATION SCH (07:36)
[2023-01-29] MEDS ORDERED: SPIRONOLACTONE 25 MG TAB PO SCH (09:00)
[2023-01-29] MEDS: METOPROLOL TARTRATE 12.5 MG TAB PO SCH (09:54)
[2023-01-29] MEDS: APIXABAN 5 MG TAB PO SCH (09:55)
[2023-01-29] MEDS: MAGNESIUM OXIDE 400 MG TAB PO SCH (09:55)
[2023-01-29] MEDS: ASPIRIN 81 MG PO SCH (09:55)
[2023-01-29] MEDS: FOLIC ACID 1 MG TAB PO SCH (09:55)
[2023-01-29] MEDS: POTASSIUM CHLORIDE ER 20 MEQ TAB.ER PO SCH (09:55)
[2023-01-29] MEDS: PANTOPRAZOLE 40 MG TABLET PO SCH (09:55)
[2023-01-29] MEDS: FERROUS SULFATE 325 MG TAB PO SCH (09:55)
[2023-01-29] MEDS ORDERED: FUROSEMIDE 100 MG in SODIUM CHLORIDE 0.9% 90 ML IV SCH (10:15)
[2023-01-29] MEDS ORDERED: DEXTROSE/WATER 1 250ML.BAG with DOPamine DRIP 800 MG IV SCH (10:15)
[2023-01-29] MEDS ORDERED: DOBUTamine DRIP 500 MG in DEXTROSE/WATER 1 250ML.BAG IV SCH (10:15)
[2023-01-29 10:16] LABS: Calcium 8.2 mg/dL (8.4-10.2); Potassium 4.7 mmol/L (3.5-5.1)
[2023-01-29 11:50] VITALS: BP 112/65; PULSE 79; RESP 28; TEMP 97.6
--- NOTE | 2023-01-29 15:56 | P.PN ---
Subjective Progress Note Date: 01/29/23 Principal diagnosis: Acute hypoxic respiratory failure, multifactorial mostly related to acute systolic congestive heart failure, ejection fraction of 20% This is a 58-year-old white male with history of stage IV lung cancer, this was diagnosed about 7-8 months ago. For his lung cancer, the patient is being followed by oncology at [facility]. And he did receive chemotherapy and immunotherapy. Patient is also known to have history of systolic congestive heart failure, ejection fraction of 20%, patient presented to the hospital on 01/23/2023 with mostly symptoms of shortness of breath and significant swelling in lower extremities. Supposedly the patient was treated recently in an outside institution for pneumonia, although looking at his chest x-ray from this admission, it seems to be mostly consistent with congestive heart failure, nonetheless the patient did have leukocytosis with WBC count of 16,000, he had elevated troponin level of 0.059, and a BNP level of 15,100. Screening for Covid19 was negative. Echocardiogram on this admission showed severely reduced global LV function with ejection fraction of 20% he was also found to have 3+ tricuspid regurgitation and severe pulmonary hypertension. Considering his shortness of breath, this consult was initiated. Patient denies any fever or chills, he had intermittent cough, shortness of breath, no chest pain, his main concern seems to be related to significant swelling in his lower extremities bilaterally. Patient is now on Lasix at 40 mg IV push twice a day, and his shortness of breath as well as his bipedal edema seems to be responding well to treatment. Patient is also on Aldactone 25 mg daily. Reevaluated today on 01/26/2023, patient remains on suction remains on diuretics, remains on bronchodilators, he is also on beta blockers, improving, less shortness of breath, less swelling in the lower extremities noted. Leukocytosis is improving hemoglobin is 10.8. Electrolytes are normal except for bicarb of 36. BUN of 50 creatinine 0.94. Pro-calcitonin level 0.48. Patient is on Zosyn. Reevaluated today on 01/27/2023, patient is feeling slightly better, continues to have shortness of breath, intermittent cough, wheezing, and continues to have significant swelling in the lower extremities in spite of aggressive diuresis. Chest x-ray is showing improvement in his interstitial edema. WBC count is 13.3 hemoglobin is 10.8 electrolytes are normal BUN is 50 creatinine 0.94. Reevaluated today on 01/28/2023, patient is not doing well today, he is having more trouble with his shortness of breath, intermittent cough, wheezing, and not feeling good. Remains on 5 L nasal cannula, O2 sats is at 93%. WBC count today is 10.5 hemoglobin is 11 electrolytes showed low sodium of 129 BUN is 58 creatinine 1.22, pro-calcitonin level 0.48.. Sputum is positive for pseudomonas aeruginosa, obviously the patient has underlying pseudomonal pneumonia, patient remains on Zosyn for his pseudomonal pneumonia. Today were adding more bronchodilators and steroids because of symptoms of COPD exacerbation and worsening shortness of breath Patient was reevaluated today on 01/19/2023, family is at bedside, patient continues to do poorly, family seems to be concerned about his overall condition, and the patient as well as the family members at bedside are all inclined to consider hospice since his condition is terminal, and he is not doing well, mostly concerned about his quality of life. Patient continues to have low sodium of 128, BUN is 70 creatinine 1.71, his creatinine is getting worse with diuretics. Pro-calcitonin was 0.48 admission, patient does not feel well. And he remains on oxygen at 5 L/m. Not much of an improvement noted since admission. Objective - Vital Signs Vital signs: Vital Signs Temp 97.6 F 01/29/23 11:48 Pulse 79 01/29/23 11:48 Resp 28 H 01/29/23 11:48 BP 112/65 01/29/23 11:48 Pulse Ox 88 L 01/29/23 11:48 FiO2 Intake & Output 01/28/23 01/29/23 01/29/23 18:59 06:59 18:59 Intake Total 180 10 180 Output Total 250 550 Balance -70 -540 180 Weight 90.1 kg Intake: IV 10 Invasive Line 1 10 Oral 180 180 Output: Urine 250 550 Straight 250 Other: Voiding Method Urinal Urinal Urinal - Exam Physical Exam: Revealed a 58-year-old white male in no distress on 5 L nasal cannula Head: Atraumatic normocephalic. HEENT:[Neck is supple.] [No neck masses.] [No thyromegaly.] Positive JVD. Chest: [Crackles and rhonchi noted bilaterally. Wheezing on forced expiratory maneuver noted bilaterally. Cardiac Exam: [Normal S1 and S2, no S3 gallop, 2/6 systolic murmur thought the precordium. Abdomen: [Soft, nontender, no megaly, no rebound, no guarding, normal bowel sounds.] Extremities: [No clubbing, 3+ bipedal edema no cyanosis. Neurological Exam: Alert and oriented 3. [No focal neurologic deficit.] Psychiatric: Normal mood affect and normal mental status examination. Skin: No rashes. - Labs CBC & Chem 7: 01/28/23 07:21 01/29/23 09:24 Labs: Abnormal Lab Results - Last 24 Hours (Table) 01/29/23 Range/Units 09:24 Sodium 128 L (137-145) mmol/L Chloride 82 L (98-107) mmol/L Carbon Dioxide 33 H (22-30) mmol/L BUN 70 H (9-20) mg/dL Creatinine 1.71 H (0.66-1.25) mg/dL Glucose 159 H (74-99) mg/dL Calcium 8.2 L (8.4-10.2) mg/dL Microbiology - Last 24 Hours (Table) 01/26/23 09:25 Gram Stain - Final Sputum Sputum Culture - Final Pseudomonas aeruginosa Assessment and Plan Assessment: Impression: Acute hypoxic episode of failure Acute systolic congestive heart failure/pulmonary edema, ejection fraction of 20%, cannot rule out underlying pneumonia/postobstructive pneumonia, considering pro calcitonin level is elevated will empirically continue Zosyn. History of underlying COPD History of underlying bronchogenic carcinoma stage IV Severe pulmonary hypertension and cor pulmonale Chronic tricuspid regurgitation and pulmonary hypertension Acute pseudomonal aeruginosa pneumonia Patient has SIRS with underlying infection/pneumonia as noted above. Recommendation: Discussed with the patient and his family at bedside his overall condition The patient and his family members are all requesting evaluation by hospice Will initiate hospice evaluation in the meantime continue present treatment plan as noted below. Once the patient is a very by hospice and we can proceed with comfort care measures, then we could discontinue the treatment below in the meantime Continue bronchodilators, Antibiotics, diuretics, and steroids. Continue GI and DVT prophylaxis Continue oxygen and titrate accordingly Prognosis remains relatively poor and guarded, I fully agree with hospice evaluation. Time with Patient: Less than 30
--- NOTE | 2023-01-29 16:18 | PN ---
PROGRESS NOTE SUBJECTIVE: Charli is a 58-year-old gentleman with complex cardiac history with ischemic cardiomyopathy with severe LV systolic dysfunction who is admitted to hospital with acute exacerbation of chronic systolic heart failure. He had been in the hospital for a week now, his condition has deteriorated over the last 48 hours. His urine output had come down. He has gained weight and he is more short of breath. The patient and family are currently considering hospice. I am going to try him on dobutamine and dopamine today along with Lasix drip. If things do not improve by tomorrow, then we are going to stop all this, put him on oral therapies and discharge him home for home hospice. I spoke to family members who were at bedside. OBJECTIVE: GENERAL: On exam, the patient is in mild respiratory distress. Heart rate is 70 beats per minute. Blood pressure is 99/62, respiratory rate is 30, O2 saturation is 93% on 6 L. NECK: There is jugular venous distention. CHEST: Reveals bilateral crackles. HEART: Reveals first and second heart sounds. Systolic murmur at the apex. ABDOMEN: Soft. EXTREMITIES: Exam of extremities reveals moderate bilateral pitting edema. LABORATORY DATA: Labs show a hemoglobin of 11. Sodium is 128 BUN is 70, creatinine is 1.7. ASSESSMENT: Refractory congestive heart failure. PLAN: I will start the patient on dobutamine, dopamine and Lasix drip and see how he responds. MMHENRYL / ALYCIAN: [id number] /
--- NOTE | 2023-02-03 14:30 | CDI ---
Documentation Clarification Form Date: 02/03/2023 2:17:59 PM From: Dia Robertson RN, CCDS Email: [email or web address] Admit Date: 01/23/2023 10:43:00 AM Patient Name: Charli Rod Visit Number: [id number] Discharge Date: 01/29/2023 6:40:00 PM ATTENTION: The Clinical Documentation Specialists (CDI) and [facility] Coding Staff appreciate your assistance in clarifying documentation. Please respond to the clarification below the line at the bottom and electronically sign. The CDI & [facility] Coding staff will review the response and follow-up if needed. Please note: Queries are made part of the Legal Health Record. If you have any questions, please contact the author of this message via ITS. Dr. Brandon Garcia Pseudomonal pneumonia is documented starting 01/28. For each diagnosis, documentation must be clear to determine if the condition was present at the time of the patients inpatient admission or developed during the hospital stay. Additional clarification regarding the pseudomonal pneumonia is requested. History/Risk Factors: He states he's been struggling with edema over the last several months while undergoing chemotherapy for stage IV lung cancer and was recently treated for pneumonia. History of A fib and pacemaker. Clinical Indicators: 01/23 H&P: "He states he's been struggling with edema over the last several months while undergoing chemotherapy for stage IV lung cancer and was recently treated for pneumonia." 01/25 Pulmonary: "Supposedly the patient was treated recently in an outside institution for pneumonia, although looking at his chest x-ray from this admission, it seems to be mostly consistent with congestive heart failure, nonetheless the patient did have leukocytosis with WBC count of 16,000, he had elevated troponin level of 0.059, and a BNP level of 15,100." 01/28 Pulmonary: "Sputum is positive for pseudomonas aeruginosa, obviously the patient has underlying pseudomonal pneumonia, patient remains on Zosyn for his pseudomonal pneumonia." 01/23 CXR: Cardiomegaly with bibasilar infiltrates. Small effusions are present. Clinical correlation recommended for congestive heart failure. 01/26 Sputum culture: pseudomonas aeruginosa 01/23 WBC 12.6 01/25 WBC 16.4, Procalcitonin: 0.48 01/27 CXR: Similar multifocal airspace opacities. Similar cardiomegaly. Treatment: IV Zosyn 3.375gm Q8H 01/26-01/29. Duonebs Q4H Definition of Present on Admission (POA): A diagnosis present at the time the order for admission to inpatient status was written. Please clarify if pseudomonas pneumonia was POA [] Y = Yes, the condition was present at the time of the order for inpatient admission. [ ] N = No, the condition was not present at the time of the order for inpatient admission. [ ] W = Clinically undetermined if the condition was present at the time of the order for inpatient admission. MTDD
--- NOTE | 2023-02-03 15:10 | CDI ---
Documentation Clarification Form Date: 02/03/2023 3:07:00 PM From: Ade Phan Phone: [phone] Admit Date: 01/23/2023 10:43:00 AM Patient Name: Charli Rod Visit Number: [id number] Discharge Date: 01/29/2023 6:40:00 PM ATTENTION: The Clinical Documentation Specialists (CDI) and [facility] Coding Staff appreciate your assistance in clarifying documentation. Please respond to the clarification below the line at the bottom and electronically sign. The CDI & [facility] Coding staff will review the response and follow-up if needed. Please note: Queries are made part of the Legal Health Record. If you have any questions, please contact the author of this message via ITS. Dr. Brandon Garcia The patient has SIRS criteria with a possible infection noted in the chart. Based on this information and the findings below, is there an additional diagnosis that is clinically appropriate for this patient? History/Risk Factors: "58-year-old male who presented to the hospital with increased shortness of breath and lower extremity edema. He states he's been struggling with edema over the last several months while undergoing chemotherapy for stage IV lung cancer and was recently treated for pneumonia." - Per Admission H&P on 01/23 Clinical Indicators: "cannot rule out underlying pneumonia/post obstructive pneumonia, considering pro calcitonin level is elevated" - Per Progress Note on 01/27 WBC 01/23 - 12.6 01/25 - 16.4 01/26 - 13.3 Lactic acid: 01/23 - 1.6 Procalcitonin: 01/25 - 0.48 Blood cultures: not drawn. Vitals signs: 01/23 08:08 - Temp. 98.6, HR 100, RR 28, BP 105/50, O2 90% on 2L NC 01/23 18:00 - HR 102, RR 26, BP 107/94, O2 92% 01/24 08:10 - Temp. 97.5, HR 98, RR 16, BP 114/64, O2 93% on 4L 01/25 08:10 - Temp. 97.9, HR 92, RR 22, BP 116/76, O2 96% on 4L 01/26 10:59 - Temp. 97.6, HR 73, RR 28, BP 108/68, O2 91% on L 01/27 04:00 - Temp. 97.7, HR 81, RR 20, BP 101/62, O2 90% no 5L Treatment: Per Progress Note on 01/27 - continue Zosyn (3.375gm Q8H 01/26-01/29) - continue bronchodilators - continue oxygen and titrate accordingly Is there an additional diagnosis that is clinically appropriate for this patient? [ ] Sepsis, present on admission [ ] Sepsis ruled out [ ] Severe Sepsis with organ failure [ ] SIRS, without underlying infectious process [ ] Other, please specify [ ] Unable to determine SIRS Criteria: 2 or more of the following may indicate SIRS Temperature < 96.8F (36C) or > 101.0F (38.3C) Heart Rate > 90 bpm Respiratory Rate > 20 breaths/min or PaCO2 < 32 mmHg White Blood Cell Count > 12,000 or < 4,000 cells/mm3 or > 10% bands MTDD
== END 2023-01-29 18:40 | disposition expired | DRG 720 ==
LOC: EC 08:04 → 3SCARD 10:43
PROVIDERS: ADMIT Internal Medicine; ATTEND Internal Medicine
DX: A41.9 Sepsis, unspecified organism (principal); J15.1 Pneumonia due to Pseudomonas; E03.9 Hypothyroidism, unspecified; C34.91 Malignant neoplasm of unspecified part of right bronchus or lung; J96.21 Acute and chronic respiratory failure with hypoxia; D64.9 Anemia, unspecified; E78.5 Hyperlipidemia, unspecified; E87.6 Hypokalemia; I07.1 Rheumatic tricuspid insufficiency; I25.5 Ischemic cardiomyopathy; I25.2 Old myocardial infarction; I25.10 Atherosclerotic heart disease of native coronary artery without angina pectoris; I27.29 Other secondary pulmonary hypertension; I27.81 Cor pulmonale (chronic); E87.1 Hypo-osmolality and hyponatremia; Z51.5 Encounter for palliative care; I48.19 Other persistent atrial fibrillation; I50.43 Acute on chronic combined systolic (congestive) and diastolic (congestive) heart failure; J44.0 Chronic obstructive pulmonary disease with (acute) lower respiratory infection; Z66 Do not resuscitate; Z99.81 Dependence on supplemental oxygen; Z87.891 Personal history of nicotine dependence; Z20.822 Contact with and (suspected) exposure to COVID-19; Z79.01 Long term (current) use of anticoagulants; Z79.82 Long term (current) use of aspirin; H91.90 Unspecified hearing loss, unspecified ear; I45.4 Nonspecific intraventricular block; R77.8 Other specified abnormalities of plasma proteins; Z79.890 Hormone replacement therapy; Z79.899 Other long term (current) drug therapy; Z82.49 Family history of ischemic heart disease and other diseases of the circulatory system; Z95.1 Presence of aortocoronary bypass graft; Z95.810 Presence of automatic (implantable) cardiac defibrillator; Z71.3 Dietary counseling and surveillance
CPT/HCPCS: 36415; 71045; 80048; 80053; 83605; 83735; 83880; 84132; 84145; 84484; 85025; 85610; 85730; 87070; 87077; 87186; 87205; 87635; 93005; 93306; 93970; 94640; 94760; 96365; 96375; 96376; 99291